=== PATIENT | female | born 1960 | race African-American/Black ===

== ENCOUNTER → 2016-11-30 | Outpatient (CLI) | payer MEDICAID | LOC: OD 16:50 | PROVIDERS: ATTEND Physician Assistant | DX: R07.9 Chest pain, unspecified (principal); R07.1 Chest pain on breathing | CPT/HCPCS: 71020 ==

== ENCOUNTER → 2016-12-06 | Outpatient (CLI) | payer MEDICAID | LOC: RAD 10:41 | PROVIDERS: ATTEND Physician Assistant | DX: J90 Pleural effusion, not elsewhere classified (principal) | CPT/HCPCS: 71020 ==

== ENCOUNTER 2016-12-07 06:34 | Day surgery (SDC) | payer MEDICAID ==
[~2016-12-07 06:34] MED LIST: BUPIVACAINE HCL 0.75% INJ/PF (7.5 MG/1 ML) 10 ML SDV OD PRN; KETOROLAC TROMETHAMINE 0.45% 4 DROP/0.4 ML DROPERETTE OD PRN; LIDOCAINE 4% INJ/PF (40 MG/ML) 5 ML AMPUL OD PRN
[2016-12-07] MEDS ORDERED: MIDAZOLAM 2 MG/2 ML INJ ONE ×2 (06:39→06:48)
[2016-12-07] MEDS ORDERED: PROPOFOL INJ 200 MG/20 ML VIAL IV ONE (06:39)
[2016-12-07] MEDS: TETRACAINE HCL 0.5% OPH SOLN 0.6 ML DROPERETTE OD PRN ×2 (07:16→07:27)
[2016-12-07] MEDS: TROPICAMIDE 1% OPH SOLN 3 ML OD PRN ×3 (07:17→07:26)
[2016-12-07] MEDS: BESIFLOXACIN HCL 0.6% OPH SUSP 5 ML BOTTLE OD PRN ×3 (07:17→08:01)
[2016-12-07] MEDS: CYCLOPENTOLATE 0.2%/PHENYLEPHRINE 1% OPH SOLN 2 ML OD PRN ×3 (07:17→07:26)
[2016-12-07] MEDS ORDERED: EPINEPHRINE INJ/PF 1 MG/1 ML AMPULE ONE (07:19)
[2016-12-07] MEDS ORDERED: CHONDR SU A NA/HYALUR INTRAOC KIT (SURGICARE) ONE (07:20)
--- NOTE | 2016-12-07 08:38 | [facility] DISCHARGE SUMMARY E ---
[facility] Discharge Summary NAME: DENIS HAIR AGE: 56Y ADMITTED: 12/07/2016 DISCHARGED: 12/07/2016 ADMISSION DIAGNOSIS: Cataract, right eye. DISCHARGE DIAGNOSIS: Cataract, right eye. HOSPITAL COURSE: The patient underwent uneventful cataract extraction with intraocular lens implant, right eye, on 12/07/2016. She is discharged to home. DISCHARGE INSTRUCTIONS: She is instructed to resume preoperative medications; to take Tylenol as needed for discomfort; to use Durezol, ketorolac and Vigamox at 3:00 p.m. and 8:00 p.m.; and to follow up in my office in 1 day. DICTATING PHYSICIAN: JEFFREY COFFMAN M.D. [id number] PHY#: [id number] ID: [id number] JOB#: [id number] ACCT: [id number] cc:JEFFREY COFFMAN M.D. >
--- NOTE | 2016-12-07 08:38 | [facility] OPERATIVE REPORT E ---
[facility] Operative Report NAME: DENIS HAIR AGE: 56Y DATE OF SURGERY: 12/07/2016 ROOM: PREOPERATIVE DIAGNOSIS: CATARACT, RIGHT EYE. POSTOPERATIVE DIAGNOSIS: CATARACT, RIGHT EYE. PROCEDURE PERFORMED: PHACOEMULSIFICATION WITH POSTERIOR CHAMBER INTRAOCULAR LENS, RIGHT EYE. SURGEON: JEFFREY COFFMAN MD ANESTHESIA: TOPICAL WITH MAC. INDICATIONS FOR SURGERY: Difficulty reading phone book and difficulty with night driving, best corrected visual acuity 20/40, with glare 20/70. PROCEDURE: The patient was brought to the Operating Room and placed on the operative table. Following tetracaine drops, topical anesthesia was administered. This consisted of instrument wipe pledgets soaked in a solution of 4% Xylocaine mixed with 0.75% Marcaine in a 1:2 ratio. A 2 x 1 cm pledget was placed in the superior fornix. A 1 x 1 cm pledget was placed in the inferior fornix. The eye was patched shut for 5 minutes. The patch was removed. The eye was sterilely prepped and draped in the usual manner. Lid speculum was placed in the eye. The pledgets were removed. 4-0 black silk sutures were placed around the superior and the inferior rectus muscles to be used as traction. A conjunctival peritomy was made at the 10 o'clock position. Hemostasis was obtained with bipolar cautery. A posterior limbal groove was created using a crescent knife and dissected anteriorly towards the cornea. A sharp point blade was used to create a paracentesis site at the 2 o'clock position. A 2.4 mm keratome was used to enter the anterior chamber through the groove. Viscoelastic was injected into the anterior chamber. An anterior capsulotomy was performed using Utrata forceps in a capsulorrhexis fashion. Hydrodissection and hydrodelineation were performed. Phacoemulsification was performed in [id number]-qka-[id number] technique. A total of 32 seconds phaco time was used. Following this, the I/A unit was used to remove residual cortex. Viscoelastic was injected into the capsular bag. Intraocular lens model [id number], 45.5 diopters, serial number [id number], was placed in the capsular bag. The I/A unit was used to remove residual viscoelastic. The wound was seen to be watertight under high and low pressure, and no sutures were placed. The intraocular lens was well centered. The pressure was adjusted in the eye to normal pressure. The 4-0 black silk sutures and lid speculum were removed. The eye was shielded after Besivance drops were placed. The patient tolerated the procedure well and was sent to the Recovery Room in good condition. DICTATING PHYSICIAN: JEFFREY COFFMAN M.D. DICTATING PHYSICIAN: JEFFREY COFFMAN M.D. 1227M [id number] PHY#: [id number] ID: [id number] JOB#: [id number] ACCT: [id number] cc:JEFFREY COFFMAN M.D. >
== END 2016-12-07 08:42 | disposition home or self-care (01) ==
LOC: SC 06:34
PROVIDERS: ATTEND Ophthalmology
PROC: 08RJ3JZ Replacement of Right Lens with Synthetic Substitute, Percutaneous Approach (ICD-10-PCS; principal; 2016-12-07 07:30)
DX: H25.013 Cortical age-related cataract, bilateral (principal); H04.123 Dry eye syndrome of bilateral lacrimal glands; H40.033 Anatomical narrow angle, bilateral; I10 Essential (primary) hypertension; Z79.899 Other long term (current) drug therapy; Z85.42 Personal history of malignant neoplasm of other parts of uterus
CPT/HCPCS: 66984; V2632; J2250; J3490 ×5; J0171; 142; J2704

== ENCOUNTER → 2016-12-16 | Outpatient (CLI) | payer MEDICAID | LOC: OD 13:01 | PROVIDERS: ATTEND Physician Assistant | DX: R10.10 Upper abdominal pain, unspecified (principal); R22.2 Localized swelling, mass and lump, trunk | CPT/HCPCS: 74022 ==

== ENCOUNTER → 2016-12-21 | Outpatient (CLI) | payer MEDICAID | LOC: RAD 08:39 | PROVIDERS: ATTEND Internal Medicine | DX: C54.1 Malignant neoplasm of endometrium (principal); R91.8 Other nonspecific abnormal finding of lung field; J90 Pleural effusion, not elsewhere classified | CPT/HCPCS: 71260; 74177 ==

== ENCOUNTER 2017-01-04 07:26 | Day surgery (SDC) | payer MEDICAID ==
[~2017-01-04 07:26] MED LIST changes: -BUPIVACAINE HCL 0.75% INJ/PF (7.5 MG/1 ML) 10 ML SDV OD PRN; +BUPIVACAINE HCL 0.75% INJ/PF (7.5 MG/1 ML) 10 ML SDV OS PRN; -KETOROLAC TROMETHAMINE 0.45% 4 DROP/0.4 ML DROPERETTE OD PRN; +KETOROLAC TROMETHAMINE 0.45% 4 DROP/0.4 ML DROPERETTE OS PRN; -LIDOCAINE 4% INJ/PF (40 MG/ML) 5 ML AMPUL OD PRN; +LIDOCAINE 4% INJ/PF (40 MG/ML) 5 ML AMPUL OS PRN; +MIDAZOLAM 2 MG/2 ML INJ ONE
[2017-01-04] MEDS ORDERED: EPINEPHRINE INJ/PF 1 MG/1 ML AMPULE ONE (07:44)
[2017-01-04] MEDS ORDERED: CHONDR SU A NA/HYALUR INTRAOC KIT (SURGICARE) ONE (07:44)
[2017-01-04] MEDS: BESIFLOXACIN HCL 0.6% OPH SUSP 5 ML BOTTLE OS PRN ×3 (07:49→08:49)
[2017-01-04] MEDS: TROPICAMIDE 1% OPH SOLN 3 ML OS PRN ×3 (07:49→08:10)
[2017-01-04] MEDS: CYCLOPENTOLATE 0.2%/PHENYLEPHRINE 1% OPH SOLN 2 ML OS PRN ×3 (07:49→08:10)
[2017-01-04] MEDS: TETRACAINE HCL 0.5% OPH SOLN 0.6 ML DROPERETTE OS PRN ×2 (07:50→08:10)
--- NOTE | 2017-01-04 09:08 | [facility] OPERATIVE REPORT E ---
[facility] Operative Report NAME: DENIS HAIR AGE: 56Y DATE OF SURGERY: 01/04/2017 ROOM: PREOPERATIVE DIAGNOSIS: CATARACT, LEFT EYE. POSTOPERATIVE DIAGNOSIS: CATARACT, LEFT EYE. PROCEDURE; Phacoemulsification with posterior chamber intraocular lens, left eye. SURGEON: JEFFREY COFFMAN MD ANESTHESIA: Topical with MAC. INDICATIONS FOR SURGERY: Difficulty reading medical bottles, phone book, glare with night driving. Best-corrected visual acuity 20/25 and optical imbalance after cataract surgery on the right eye. PROCEDURE: The patient was brought to the operating room and placed on the operative table. Following tetracaine drops, topical anesthesia was administered. This consisted of instrument wipe pledgets soaked in a solution of 4% Xylocaine mixed with 0.75% Marcaine in a 1:2 ratio. A 2 x 1 cm pledget was placed in the superior fornix. A 1 x 1 cm pledget was placed in the inferior fornix. The eye was patched shut for 5 minutes. The patch was removed. The eye was sterilely prepped and draped in the usual manner. Lid speculum was placed in the eye. The pledgets were removed. Then 4-0 black silk sutures were placed around the superior and the inferior rectus muscles to be used as traction. A conjunctival peritomy was made at the 10 o'clock position. Hemostasis was attained with bipolar cautery. A posterior limbal groove was created using a crescent knife and dissected anteriorly towards the cornea. A sharp point blade was used to create a paracentesis site at the 2 o'clock position. A 2.4 mm keratome was used to enter the anterior chamber through the groove. Viscoelastic was injected into the anterior chamber. An anterior capsulotomy was performed using Utrata forceps in a capsulorrhexis fashion. Hydrodissection and hydrodelineation were performed. Phacoemulsification was performed in wkliuf-[id number]-guuhkrw technique. A total of 34 seconds phaco time was used. Following this, the I/A unit was used to remove residual cortex. Viscoelastic was injected into the capsular bag. Intraocular lens model SN60WF, 24.5 diopters, serial number [id number] was placed in the capsular bag. The I/A unit was used to remove residual viscoelastic. The wound was seen to be watertight under high and low pressure, and no sutures were placed. The intraocular lens was well centered. The pressure was adjusted in the eye to normal pressure. The 4-0 black silk sutures and lid speculum were removed. The eye was shielded after Besivance drops were placed. The patient tolerated the procedure well and was sent to the recovery room in good condition. DICTATING PHYSICIAN: JEFFREY COFFMAN M.D. [id number] PHY#: [id number] ID: [id number] JOB#: [id number] ACCT: [id number] cc:JEFFREY COFFMAN M.D. >
--- NOTE | 2017-01-04 09:08 | [facility] DISCHARGE SUMMARY E ---
[facility] Discharge Summary NAME: DENIS HAIR AGE: 56Y ADMITTED: 01/04/2017 DISCHARGED: 01/04/2017 HOSPITAL COURSE: The patient is a 56-year-old lady who underwent uneventful cataract extraction with intraocular lens implant of the left eye on 01/04/2017. DISPOSITION: She will be discharged to home. DISCHARGE INSTRUCTIONS: She is instructed to resume preoperative medications, take Tylenol as needed for discomfort, to keep her eye shielded. To use Vigamox, Durezol and ketorolac at 3 p.m. and 8 p.m. Follow up in my office in 1 day. DICTATING PHYSICIAN: JEFFREY COFFMAN M.D. 1221M 05 Y#: [id number] ID: [id number] JOB#: [id number] ACCT: [id number] cc:JEFFREY COFFMAN M.D. >
== END 2017-01-04 09:28 | disposition home or self-care (01) ==
LOC: SC 07:26
PROVIDERS: ATTEND Ophthalmology
PROC: 08RK3JZ Replacement of Left Lens with Synthetic Substitute, Percutaneous Approach (ICD-10-PCS; principal; 2017-01-04 08:30)
DX: H25.12 Age-related nuclear cataract, left eye (principal); Z96.1 Presence of intraocular lens
CPT/HCPCS: 66984; V2632; J2250; J3490 ×5; J0171; 142

== ENCOUNTER 2017-01-26 10:00 | Emergency (ER) | payer MEDICAID ==
--- NOTE | 2017-01-26 10:22 | ER Document Report ---
ED Medical Screen (RME) - General Stated Complaint: FALL;LUMBAR PAIN Notes: 56 yo female fell down stairs this morning. c/o low back pain and left elbow pain. no radiculopathy, no paresthesia. no LOC. TRAVEL OUTSIDE OF THE [place] IN LAST 30 DAYS: No - Related Data Allergies/Adverse Reactions: No Known Allergies Allergy (Verified 01/04/17 07:47) Past Medical History - Past Medical History Cardiac Medical History: Reports: Hx Hypertension - medication d/t chemo Denies: Hx Coronary Artery Disease, Hx Heart Attack Pulmonary Medical History: Reports: Hx Asthma - flovent Denies: Hx Bronchitis, Hx COPD, Hx Pneumonia Neurological Medical History: Denies: Hx Cerebrovascular Accident, Hx Seizures GI Medical History: Reports: Hx Gastroesophageal Reflux Disease. Denies: Hx Hepatitis, Hx Hiatal Hernia, Hx Ulcer Musculoskeltal Medical History: Denies Hx Arthritis Infectious Medical History: Denies: Hx Hepatitis Past Surgical History: Reports: Hx Section, Hx Gynecologic Surgery, Hx Hysterectomy. Denies: Hx Mastectomy, Hx Open Heart Surgery, Hx Pacemaker - Immunizations Hx Diphtheria, Pertussis, Tetanus Vaccination: No - unknown
[2017-01-26] MEDS ORDERED: TRAMADOL HCL 50 MG TABLET PO ONE (12:12)
[2017-01-26] MEDS ORDERED: LIDOCAINE 5% (700 MG) TRANSDERMAL ADH..PATCH TP ONE (12:12)
--- NOTE | 2017-01-26 14:04 | ER Document Report ---
ED General - General Chief Complaint: Fall Injury Stated Complaint: FALL;LUMBAR PAIN TRAVEL OUTSIDE OF THE [place] IN LAST 30 DAYS: No - HPI Patient complains to provider of: fall back pain left shoulder left elbow Notes: Patient states she is walking the stairs and she has to come fall landing on her buttocks also denies complaining of left elbow left shoulder pain. Patient denies any loss consciousness. Patient otherwise upon my evaluation is playing on her eye phone listening to music with headphones no obvious distress. Patient states that she does have pain medication at home tramadol did not take any pain medication today. Denies fevers chills nausea vomiting chest pain at all pain prior to or after the fall - Related Data Allergies/Adverse Reactions: No Known Allergies Allergy (Verified 01/26/17 10:20) Past Medical History - Social History Smoking Status: Never Smoker Chew tobacco use (# tins/day): No Frequency of alcohol use: None Drug Abuse: None Family History: Reviewed & Not Pertinent Patient has suicidal ideation: No - Past Medical History Cardiac Medical History: Reports: Hx Hypertension - medication d/t chemo Denies: Hx Coronary Artery Disease, Hx Heart Attack Pulmonary Medical History: Reports: Hx Asthma - flovent Denies: Hx Bronchitis, Hx COPD, Hx Pneumonia Neurological Medical History: Denies: Hx Cerebrovascular Accident, Hx Seizures Renal/ Medical History: Denies: Hx Peritoneal Dialysis GI Medical History: Reports: Hx Gastroesophageal Reflux Disease. Denies: Hx Hepatitis, Hx Hiatal Hernia, Hx Ulcer Musculoskeltal Medical History: Denies Hx Arthritis Infectious Medical History: Denies: Hx Hepatitis Past Surgical History: Reports: Hx Section, Hx Gynecologic Surgery, Hx Hysterectomy. Denies: Hx Mastectomy, Hx Open Heart Surgery, Hx Pacemaker - Immunizations Hx Diphtheria, Pertussis, Tetanus Vaccination: No - unknown Review of Systems - Review of Systems Constitutional: No symptoms reported EENT: No symptoms reported Cardiovascular: No symptoms reported Respiratory: No symptoms reported Gastrointestinal: No symptoms reported Genitourinary: No symptoms reported Female Genitourinary: No symptoms reported Musculoskeletal: Back pain, Other - Shoulder pain and elbow pain Skin: No symptoms reported Hematologic/Lymphatic: No symptoms reported Neurological/Psychological: No symptoms reported -: Yes All other systems reviewed and negative Physical Exam - Vital signs Vitals: Temp Pulse Resp BP Pulse Ox 98.0 F 73 20 151/73 H 97 01/26/17 10:18 01/26/17 10:18 01/26/17 10:18 01/26/17 10:18 01/26/17 10:18 Interpretation: Normal - General General appearance: Appears well, Alert - HEENT Head: Normocephalic, Atraumatic Eyes: Normal Pupils: PERRL - Respiratory Respiratory status: No respiratory distress Chest status: Nontender Breath sounds: Normal Chest palpation: Normal - Cardiovascular Rhythm: Regular Heart sounds: Normal auscultation Murmur: No - Abdominal Inspection: Normal Distension: No distension Bowel sounds: Normal Tenderness: Nontender Organomegaly: No organomegaly - Back Back: Normal, Nontender - Extremities General upper extremity: Normal inspection, Nontender, Normal color, Normal ROM , Normal temperature General lower extremity: Normal inspection, Nontender, Normal color, Normal ROM , Normal temperature, Normal weight bearing. No: Gerda's sign - Neurological Neuro grossly intact: Yes Cognition: Normal Orientation: AAOx4 Kylah Coma Scale Eye Opening: Spontaneous [place]yl[place] Coma Scale Verbal: Oriented [place] Coma Scale Motor: Obeys Commands Kylah Coma Scale Total: 15 Speech: Normal Motor strength normal: LUE, RUE, LLE, RLE Sensory: Normal - Psychological Associated symptoms: Normal affect, Normal mood - Skin Skin Temperature: Warm Skin Moisture: Dry Skin Color: Normal Course - Re-evaluation Re-evalutation: 01/26/17 18:47 X-rays negative for any acute pathology. Patient will be discharged home with medication for pain control. Patient is encouraged follow-up with her primary care physician. - Vital Signs Vital signs: Temp Pulse Resp BP Pulse Ox 98.0 F 81 16 142/84 H 100 01/26/17 14:41 01/26/17 14:41 01/26/17 14:41 01/26/17 14:41 01/26/17 14:41 Discharge - Discharge Clinical Impression: Multiple contusions Fall Qualifiers: Encounter type: initial encounter Qualified Code(s): W19.XXXA - Unspecified fall, initial encounter Condition: Good Disposition: HOME, SELF-CARE Instructions: Low Back Pain ([facility]), Contusion ([facility]) Additional Instructions: Follow-up with your primary care physician. Take medication as prescribed. Return to ER symptoms worsen. Prescriptions: Tramadol HCl [Ultram 50 mg Tablet] 50 mg PO ASDIR PRN #10 tablet PRN Reason: Referrals: PRIETO,GERTRUDIS K, MD [Primary Care Provider] - Follow up as needed
[2017-01-26 14:43] VITALS: BP 142/84
== END 2017-01-26 14:41 | disposition home or self-care (01) ==
LOC: ER 10:00
DX: T14.8 Other injury of unspecified body region (principal); M54.9 Dorsalgia, unspecified; M25.512 Pain in left shoulder; M25.522 Pain in left elbow; W10.9XXA Fall (on) (from) unspecified stairs and steps, initial encounter; Y92.009 Unspecified place in unspecified non-institutional (private) residence as the place of occurrence of the external cause; J45.909 Unspecified asthma, uncomplicated; K21.9 Gastro-esophageal reflux disease without esophagitis; Z90.710 Acquired absence of both cervix and uterus
CPT/HCPCS: 99283; 72220; 73080; 72110; 73030; J3490

== ENCOUNTER → 2017-03-10 | Outpatient (CLI) | payer MEDICAID | LOC: RAD 10:06 | PROVIDERS: ATTEND Internal Medicine | DX: C54.1 Malignant neoplasm of endometrium (principal); C78.7 Secondary malignant neoplasm of liver and intrahepatic bile duct | CPT/HCPCS: 71260; 74177 ==

== ENCOUNTER → 2017-03-23 | Outpatient (CLI) | payer MEDICAID | LOC: WI 08:24 | PROVIDERS: ATTEND Internal Medicine | DX: N63 Unspecified lump in breast (principal); C54.1 Malignant neoplasm of endometrium | CPT/HCPCS: 76642; G0204; G0206-52 ==

== ENCOUNTER → 2017-04-07 | Day surgery (SDC) | payer MEDICAID ==
[~2017-04-07] MED LIST changes: -BUPIVACAINE HCL 0.75% INJ/PF (7.5 MG/1 ML) 10 ML SDV OS PRN; -KETOROLAC TROMETHAMINE 0.45% 4 DROP/0.4 ML DROPERETTE OS PRN; +LIDOCAINE 2% INJ (20 MG/ML) 20 ML MDV ONE; -LIDOCAINE 4% INJ/PF (40 MG/ML) 5 ML AMPUL OS PRN; -MIDAZOLAM 2 MG/2 ML INJ ONE
--- NOTE | 2017-04-21 17:24 | WOMENS IMAGING REPORT ---
EXAM DESCRIPTION: U/S BREAST BX COMPLETED DATE/TIME: 04/07/2017 11:21 am REASON FOR STUDY: R59.0, C54.1 C54.1 MALIGNANT NEOPLASM OF ENDOMETRIUM R59.0 LOCALIZED ENLARGED LY MPH NODES COMPARISON: CT chest 03/10/2017 Left breast diagnostic mammogram and ultrasound 03/23/2017 TECHNIQUE: The procedure was discussed with the patient and the patient agreed to proceed. The patient was scanned and the area of interest in the left axilla was localized. This correlates w ith the area of concern on prior imaging studies. This area was targeted for ultrasound-guided core b iopsy. After sterile skin prep and 4 mL of local lidocaine 1% for skin and deep tissue anesthesia, a 14 gau [employer]ix coaxial core biopsy needle was used to obtain several cores of tissue from the lesion. Under ultr asound guidance, a ribbon clip was placed in the areas sampled. There were no immediate post-procedu re complications. MAMMOGRAM: Post-procedure two view mammogram was not performed. Pathology yields a diagnosis of moderately differentiated adenocarcinoma, final report is pending rev iew of outside prior biopsy slides from patient's prior endometrial carcinoma. Pathology is concordant. LIMITATIONS: None. FINDINGS: Ultrasound guided breast biopsy as described above. POST PROCEDURE MAMMOGRAMS FOR MARKER PLACEMENT: No IMPRESSION: ULTRASOUND-GUIDED CORE BIOPSY OF THE ENLARGED LEFT AXILLARY LYMPH NODE FIELD DIAGNOSIS O F MODERATELY DIFFERENTIATED ADENOCARCINOMA COMMENT: COMMUNICATION: The patient's provider has been notified of the findings. The provider will discuss the findings with the patient. Patient medication list reviewed: Yes- Quality ID# [id number]:Eligible professional attests to documenting i n the medical record they obtained, updated, or reviewed the patient's current medications. TECHNICAL DOCUMENTATION: JOB ID: [id number] [employer]- All Rights Reserved
== END ==
LOC: WI 09:53
PROVIDERS: ATTEND Internal Medicine
PROC: 0HBU3ZX Excision of Left Breast, Percutaneous Approach, Diagnostic (ICD-10-PCS; principal; 2017-04-07)
DX: C54.1 Malignant neoplasm of endometrium (principal); R59.0 Localized enlarged lymph nodes; C44.509 Unspecified malignant neoplasm of skin of other part of trunk
CPT/HCPCS: 88342 ×2; 88341 ×2; 88305 ×2; 19083; J3490

== ENCOUNTER → 2017-04-27 | Outpatient (CLI) | payer MEDICAID ==
[2017-04-27 18:03] LABS: ABSOLUTE LYMPHOCYTES (AUTO) 1.4 10^3/uL (0.5-4.7); ABSOLUTE MONOCYTES (AUTO) 0.6 10^3/uL (0.1-1.4); BASOPHILS % (AUTO) 0.4 % (0-2); EOSINOPHILS % (AUTO) 0.3 % (0-6); HEMATOCRIT 34.4 % (36.0-47.0); HEMOGLOBIN 10.7 g/dL (12.0-15.5); HGB HCT DIFFERENCE -2.3; LYMPHOCYTES % (AUTO) 23.2 % (13-45); MEAN CORPUSCULAR HEMOGLOBIN 21.2 pg (27.0-33.4); MEAN CORPUSCULAR HGB CONC 31.2 g/dL (32.0-36.0); MEAN CORPUSCULAR VOLUME 68 fl (80-97); MONOCYTES % (AUTO) 9.4 % (3-13); RED BLOOD COUNT 5.06 10^6/uL (3.72-5.28); RED CELL DISTRIBUTION WIDTH 16.6 % (11.5-14.0); SEGMENTED NEUTROPHILS % (AUTO) 66.7 % (42-78); WHITE BLOOD COUNT 5.9 10^3/uL (4.0-10.5)
[2017-04-27 18:30] LABS: ALANINE AMINOTRANSFERASE 23 U/L (9-52); ALBUMIN 3.4 g/dL (3.5-5.0); ALKALINE PHOSPHATASE 65 U/L (38-126); ANION GAP 10 (5-19); ASPARTATE AMINO TRANSFERASE 29 U/L (14-36); BILIRUBIN,TOTAL 0.3 mg/dL (0.2-1.3); BLOOD UREA NITROGEN 13 mg/dL (7-20); CALCIUM 9.8 mg/dL (8.4-10.2); CARBON DIOXIDE 28 mmol/L (22-30); CHLORIDE 100 mmol/L (98-107); CREATININE RESULT 0.77 mg/dL (0.52-1.25); GLUCOSE 84 mg/dL (75-110); SODIUM 137.9 mmol/L (137-145); TOTAL PROTEIN 6.8 g/dL (6.3-8.2)
== END ==
LOC: OD 17:07
PROVIDERS: ATTEND Physician Assistant
DX: K59.00 Constipation, unspecified (principal)
CPT/HCPCS: 36415; 80053; 85025

== ENCOUNTER → 2017-04-27 | Outpatient (CLI) | payer MEDICAID ==
--- NOTE | 2017-04-27 17:21 | RADIOLOGY REPORT (SQ) ---
EXAM DESCRIPTION: ACUTE ABDOMEN SERIES COMPLETED DATE/TIME: 04/27/2017 5:00 pm REASON FOR STUDY: CONSTIPATION, UNSPECIFIED K59.00 CONSTIPATION, UNSPECIFIED COMPARISON: 12/16/2016 NUMBER OF VIEWS: Three views. TECHNIQUE: Frontal chest, supine abdomen and upright abdomen radiographic images acquired. LIMITATIONS: None. FINDINGS: CHEST: There is a large nodule in the medial left base with multiple smaller nodules in silvia th lungs representing advancing disease compared to the earlier study. FREE AIR: No free air is present. There is a general haziness to the abdomen suggesting the presence of ascites. BOWEL GAS PATTERN: Nonobstructive pattern. No dilated loops or air fluid levels. CALCIFICATIONS: No suspicious calcifications. HARDWARE: None in the abdomen. SOFT TISSUES: No gross mass or suggestion of organomegaly. BONES: No acute fracture. No worrisome bone lesions. OTHER: No other significant finding. IMPRESSION: 1. Large pulmonary nodule with multiple smaller pulmonary nodules suggesting metastases . 2. Possible ascites. TECHNICAL DOCUMENTATION: JOB ID: [id number] [employer]- All Rights Reserved
== END ==
LOC: OD 16:42
PROVIDERS: ATTEND Physician Assistant
DX: K59.00 Constipation, unspecified (principal); R91.8 Other nonspecific abnormal finding of lung field
CPT/HCPCS: 74022

== ENCOUNTER 2017-05-04 19:05 | Inpatient (IN) | payer MEDICAID ==
--- NOTE | 2017-05-04 19:28 | ER Document Report ---
ED Respiratory Problem - General Mode of Arrival: Ambulatory Information source: Patient TRAVEL OUTSIDE OF THE [place] IN LAST 30 DAYS: No - HPI Patient complains to provider of: Other - difficulty breathing Associated symptoms: Other - See above <CHARLA BRADFORD - Last Filed: 05/04/17 21:44> <ESTEBANSAUL DENIZ - Last Filed: 05/05/17 01:25> - General Chief Complaint: Breathing Difficulty Stated Complaint: TROUBLE BREATHING Time Seen by Provider: 05/04/17 19:13 Notes: Patient is a 57 year old female, with a past medical history including endometrium cancer and asthma, who presents to the emergency department complaining of difficulty breathing onset a couple of hours ago. Patient states that she has also had chest pain over the past couple of days that has subsided some. Patient reports her last chemotherapy treatment was 6 days ago and that the treatment is new as of 2 weeks ago. Patient reports she has been experiencing side effets from the therapy including abdominal pain, back pain, constipation, and loss of appetite. Patient also complains bloating and chills. Patient denies cough and fever. Patient has an inhaler at home and uses as needed. Patient states that she did take a Tylenol at home at around 1400 today. (CHARLA BRADFORD) - Related Data Allergies/Adverse Reactions: No Known Allergies Allergy (Verified 01/26/17 10:20) Past Medical History - General Information source: Patient - Social History Smoking Status: Unknown if Ever Smoked Family History: Reviewed & Not Pertinent - Past Medical History Cardiac Medical History: Reports: Hx Hypertension - medication d/t chemo Pulmonary Medical History: Reports: Hx Asthma - flovent Malignancy Medical History: Reports: Other - Hx endometrium cancer GI Medical History: Reports: Hx Gastroesophageal Reflux Disease Past Surgical History: Reports: Hx Section, Hx Gynecologic Surgery, Hx Hysterectomy - Immunizations Hx Diphtheria, Pertussis, Tetanus Vaccination: No - unknown <CHARLA BRADFORD - Last Filed: 05/04/17 21:44> Review of Systems - Review of Systems Constitutional: See HPI, Chills EENT: No symptoms reported Cardiovascular: See HPI, Chest pain Respiratory: See HPI, Other - difficulty breathing. denies: Cough Gastrointestinal: See HPI, Abdomen distended, Abdominal pain, Constipation, Poor appetite Genitourinary: No symptoms reported Female Genitourinary: No symptoms reported Musculoskeletal: See HPI, Back pain Skin: No symptoms reported Hematologic/Lymphatic: No symptoms reported Neurological/Psychological: No symptoms reported -: Yes All other systems reviewed and negative <CHARLA BRADFORD - Last Filed: 05/04/17 21:44> Physical Exam - Vital signs Interpretation: Tachypneic - mild - General General appearance: Alert, Other - chronically ill appearing - HEENT Head: Normocephalic, Atraumatic - Respiratory Respiratory status: Tachypnea - mild Chest status: Nontender Breath sounds: Decreased air movement - at bases bilaterally Chest palpation: Normal - Cardiovascular Rhythm: Regular Heart sounds: Normal auscultation Murmur: No - Back Back: Normal, Nontender - Extremities General upper extremity: Normal inspection General lower extremity: Normal inspection - Neurological Neuro grossly intact: Yes Cognition: Normal Orientation: AAOx4 Kylah Coma Scale Eye Opening: Spontaneous Kylah Coma Scale Verbal: Oriented [place] Coma Scale Motor: Obeys Commands Kylah Coma Scale Total: 15 Speech: Normal - Psychological Associated symptoms: Normal affect, Normal mood - Skin Skin Temperature: Warm Skin Moisture: Dry Skin Color: Normal <CHARLA BRADFORD - Last Filed: 05/04/17 21:44> Course - Laboratory Result Diagrams: 05/04/17 20:27 05/04/17 20:27 <CHARLA BRADFORD - Last Filed: 05/04/17 21:44> - Laboratory Result Diagrams: 05/04/17 20:27 05/04/17 20:27 - Diagnostic Test Radiology reviewed: Reports reviewed <SAUL ORELLANA - Last Filed: 05/05/17 01:25> - Re-evaluation Re-evalutation: 05/05/17 00:17 Patient is a 57-year-old female who comes in complaining about difficulty breathing. Patient has a history of endometrial cancer and is getting chemotherapy currently. Patient with bilateral moderate-sized pleural effusions. Patient came in with tachypnea. No evidence for infection otherwise. Patient has been discussed with Dr. Ventura. Thoracocentesis under ultrasound has been ordered. Patient will be kept overnight. Understands and agrees with plan. Stable time of admission (SAUL ORELLANA) - Vital Signs Vital signs: Temp Pulse Resp BP Pulse Ox 98.3 F 92 19 131/80 H 99 05/05/17 00:30 05/05/17 00:30 05/05/17 00:30 05/05/17 00:30 05/05/17 00:30 - Laboratory Laboratory results interpreted by me: 05/04/17 05/04/17 05/04/17 20:27 20:27 20:27 Hgb 9.6 L Hct 31.0 L MCV 67 L MCH 20.9 L MCHC 31.0 L RDW 16.8 H VBG pH 7.45 H VBG HCO3 34.1 H Sodium 136.4 L Carbon Dioxide 31 H Total Protein 5.8 L Albumin 2.8 L Urine Protein Urine Ascorbic Acid 05/04/17 22:57 Hgb Hct MCV MCH MCHC RDW VBG pH VBG HCO3 Sodium Carbon Dioxide Total Protein Albumin Urine Protein 30 H Urine Ascorbic Acid 20 H Discharge <CHARLA BRADFORD - Last Filed: 05/04/17 21:44> - Discharge Admitting Provider: [facility] Admitted: [facility] <SAUL ORELLANA - Last Filed: 05/05/17 01:25> - Discharge Clinical Impression: Pleural effusion, Endometrial cancer Condition: Stable Disposition: ADMITTED INPATIENT Scribe Attestation: 05/05/17 01:18 I personally performed the services described in the documentation, reviewed and edited the documentation which was dictated to the scribe in my presence, and it accurately records my words and actions. (SAUL ORELLANA) Scribe Documentation - Scribe Written by Orlando:: orlando Ratliff, 05/04/17, [id number] acting as scribe for :: Esteban <CHARLA BRADFORD - Last Filed: 05/04/17 21:44>
--- NOTE | 2017-05-04 20:01 | RADIOLOGY REPORT (SQ) ---
EXAM DESCRIPTION: CHEST SINGLE VIEW COMPLETED DATE/TIME: 05/04/2017 7:40 pm REASON FOR STUDY: SOB COMPARISON: 12/06/2016 EXAM PARAMETERS: NUMBER OF VIEWS: One view. TECHNIQUE: Single frontal radiographic view of the chest acquired. RADIATION DOSE: NA LIMITATIONS: None. FINDINGS: LUNGS AND PLEURA: New bilateral small pleural effusions. Similar lateral pulmonary nodula rity. No pneumothorax. Minimal basilar subsegmental atelectasis. MEDIASTINUM AND HILAR STRUCTURES: Stable. HEART AND VASCULAR STRUCTURES: Stable. BONES: No acute findings. HARDWARE: Right chest port appears stable. OTHER: No other significant finding. IMPRESSION: New bilateral small pleural effusions. Similar lateral pulmonary nodularity. No pneumot horax. Minimal basilar subsegmental atelectasis. TECHNICAL DOCUMENTATION: JOB ID: [id number]
[2017-05-04 20:42] LABS: ABSOLUTE BASOPHILS # (AUTO) 0.1 10^3/uL (0.0-0.2); ABSOLUTE LYMPHOCYTES (AUTO) 1.2 10^3/uL (0.5-4.7); ABSOLUTE MONOCYTES (AUTO) 0.6 10^3/uL (0.1-1.4); ABSOLUTE NEUT (AUTO) 4.6 10^3/uL (1.7-8.2); EOSINOPHILS % (AUTO) 0.2 % (0-6); HEMOGLOBIN 9.6 g/dL (12.0-15.5); HGB HCT DIFFERENCE -2.2; LYMPHOCYTES % (AUTO) 18.3 % (13-45); MEAN CORPUSCULAR HEMOGLOBIN 20.9 pg (27.0-33.4); MEAN CORPUSCULAR VOLUME 67 fl (80-97); RED CELL DISTRIBUTION WIDTH 16.8 % (11.5-14.0); SEGMENTED NEUTROPHILS % (AUTO) 71.5 % (42-78); WHITE BLOOD COUNT 6.4 10^3/uL (4.0-10.5)
[2017-05-04 20:43] LABS: VENOUS BLOOD BASE EXCESS 8.8 mmol/L; VENOUS BLOOD HCO3 34.1 mmol/L (20-32); VENOUS BLOOD PCO2 49.8 mmHg (35-63); VENOUS BLOOD PH 7.45 (7.30-7.42)
[2017-05-04 21:00] LABS: ALANINE AMINOTRANSFERASE 24 U/L (9-52); ALBUMIN 2.8 g/dL (3.5-5.0); ALKALINE PHOSPHATASE 69 U/L (38-126); ANION GAP 6 (5-19); ASPARTATE AMINO TRANSFERASE 29 U/L (14-36); BILIRUBIN,TOTAL 0.2 mg/dL (0.2-1.3); BLOOD UREA NITROGEN 12 mg/dL (7-20); CARBON DIOXIDE 31 mmol/L (22-30); CHLORIDE 99 mmol/L (98-107); CREATININE RESULT 0.68 mg/dL (0.52-1.25); GLUCOSE 93 mg/dL (75-110); POTASSIUM 4.2 mmol/L (3.6-5.0); SODIUM 136.4 mmol/L (137-145); TOTAL PROTEIN 5.8 g/dL (6.3-8.2)
[2017-05-04] MEDS ORDERED: NORMAL SALINE 500 ML IV ONE (21:06)
--- NOTE | 2017-05-04 22:56 | RADIOLOGY REPORT (SQ) ---
EXAM DESCRIPTION: CTA CHEST COMPLETED DATE/TIME: 05/04/2017 10:41 pm REASON FOR STUDY: sob, evaluate for PE COMPARISON: 03/10/2017 TECHNIQUE: CT scan of the chest performed using helical scanning technique with dynamic intravenous contrast injection. Images reviewed with lung, soft tissue and bone windows. Reconstructed coronal and sagittal MPR images reviewed. Additional 3 dimensional post-processing performed to develop Maximal Intensity Projection images (MO P). All images stored on PACS. All CT scanners at this facility use dose modulation, iterative reconstruction, and/or weight based d osing when appropriate to reduce radiation dose to as low as reasonably achievable (ALARA). [facility]: Dose Right [facility]: CareDose [facility]: Dose Right [facility]: Teradose 4D [facility]: Audacious CONTRAST TYPE AND DOSE: 75 mL Isovue 370- low osmolar. RENAL FUNCTION: GFR > 60. RADIATION DOSE: 14.32 mGy. LIMITATIONS: None. FINDINGS: LUNGS AND PLEURA: New moderate size Bilateral pleural effusions. Basilar subsegmental ate lectasis. Increased pulmonary nodularity throughout both lungs. AORTA AND GREAT VESSELS: No aneurysm or dissection. HEART: No pericardial effusion. PULMONARY ARTERIES: No emboli visualized in the main pulmonary arteries or the segmental branches. HILAR AND MEDIASTINAL STRUCTURES: No bulky adenopathy. HARDWARE: None in the chest. UPPER ABDOMEN: Numerous new rim enhancing lesions in the liver consistent with progressed metastatic disease. Ascites. Omental nodularity. Diffuse heterogeneous appearance of the spleen. THYROID AND OTHER SOFT TISSUES: No masses. Bilateral axillary adenopathy. BONES: No acute or significant finding. 3D MIPS: Confirm above findings. OTHER: No other significant finding. IMPRESSION: New moderate size Bilateral pleural effusions. Basilar subsegmental atelectasis. Incre ased pulmonary nodularity throughout both lungs. NO PULMONARY EMBOLI.Numerous new rim enhancing lesio ns in the liver consistent with progressed metastatic disease. Ascites. Omental nodularity. TECHNICAL DOCUMENTATION: JOB ID: [id number] Quality ID # [id number]: Final reports with documentation of one or more dose reduction techniques (e.g., Au tomated exposure control, adjustment of the mA and/or kV according to patient size, use of iterative reconstruction technique) 2010 [employer]- All Rights Reserved
[2017-05-04 23:11] LABS: APPEARANCE,URINE CLEAR; BILIRUBIN,URINE NEGATIVE (NEGATIVE); GLUCOSE, URINE NEGATIVE (NEGATIVE); KETONES,URINE NEGATIVE (NEGATIVE); LEUKOCYTE ESTERASE,URINE NEGATIVE (NEGATIVE); NITRITE,URINE NEGATIVE (NEGATIVE); PROTEIN,URINE 30 mg/dL (NEGATIVE); URINE SPECIFIC GRAVITY 1.026; UROBILINOGEN,URINE NEGATIVE mg/dL (<2.0)
[2017-05-05] MEDS: ACETAMINOPHEN 325 MG TABLET PO PRN ×2 (04:19→17:46)
[2017-05-05] MEDS ORDERED: ONDANSETRON 4 MG TAB.RAPDIS PO PRN (04:24)
[2017-05-05] MEDS: LANSOPRAZOLE 30 MG TAB.RAP.DR PO SCH (06:02)
[2017-05-05 06:34] LABS: HEMATOCRIT 28.6 % (36.0-47.0); HGB HCT DIFFERENCE -1.6; MEAN CORPUSCULAR HEMOGLOBIN 21.4 pg (27.0-33.4); MEAN CORPUSCULAR HGB CONC 31.6 g/dL (32.0-36.0); MEAN CORPUSCULAR VOLUME 68 fl (80-97); RED BLOOD COUNT 4.23 10^6/uL (3.72-5.28); RED CELL DISTRIBUTION WIDTH 16.6 % (11.5-14.0); WHITE BLOOD COUNT 5.3 10^3/uL (4.0-10.5)
[2017-05-05 06:49] LABS: ANION GAP 7 (5-19); BLOOD UREA NITROGEN 9 mg/dL (7-20); CALCIUM 8.7 mg/dL (8.4-10.2); CARBON DIOXIDE 30 mmol/L (22-30); CHLORIDE 100 mmol/L (98-107); GLUCOSE 82 mg/dL (75-110); POTASSIUM 4.2 mmol/L (3.6-5.0); SODIUM 136.6 mmol/L (137-145)
--- NOTE | 2017-05-05 07:13 | EKG REPORT ---
SEVERITY:- ABNORMAL ECG - SINUS TACHYCARDIA LEFT ANTERIOR FASCICULAR BLOCK CONSIDER ANTEROSEPTAL INFARCT : Confirmed by: Linda Rodríguez MD 05-May-2017 07:13:30
--- NOTE | 2017-05-05 08:57 | PDOC CONSULTATION ---
Consultation Consult Date: 05/05/17 Attending physician:: JOANIE PRIETO Consult reason:: Stage IV endometrial ca, w/ SOB, ascitis History of Present Illness Admission Date/PCP: 05/05/17 00:18 Patient complains of: SOB/Ascitis History of Present Illness: DENIS HAIR is a 57 year old female with known history of stage IV endometrial cancer, we have been taking care of her now for about 2 years. 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 At that time we monitored her for a few months but she began having progressive increase in size of the abdominal nodule. So we decided on reinitiating therapy and she received another 6 months of treatment with Taxol/Avastin and actually did very well with that, the disease responded appropriately, we then gave her a treatment break for several months, then about 9 months ago she began progressing again, and we started her on Gemzar/Avastin, unfortunately she had severe cytopenias and decided herself to hold on therapy at that point. She was held on therapy for about 2 months but then started progressing in October of last year with omental metastasis. We then began treatment again, as she had tolerated Taxol Avastin, we started that again but she progressed soon after. She actually began having breast thickening on the left side as well as axillary metastasis which was brand-new for her, therefore we decided to biopsy the axillary metastasis, and recently got back findings from pathology when they compared that carcinoma to the slides from [place], this was certainly the same cancer and so she is having progression all over now of the endometrial cancer. Therefore we recently started her on Doxil/Avastin. She only received about 3 infusions of this thus far and we did dose reduce for tolerability. She has not been doing well at home, she has been having poor p.o. intake, she has been having difficulty passing stool but still passing some so not completely obstructed, she has been having increasing abdominal girth and what brought her in with severe shortness of breath. Upon admission she was found to have bilateral moderate pleural effusions, also moderate to large ascites. Past Medical History Cardiac Medical History: Reports: Hypertension - medication d/t chemo Denies: Coronary Artery Disease, Myocardial Infarction Pulmonary Medical History: Reports: Asthma - flovent Denies: Bronchitis, Chronic Obstructive Pulmonary Disease (COPD), Pneumonia Neurological Medical History: Denies: Seizures Malignancy Medical History: Reports: Other - Hx endometrium cancer GI Medical History: Reports: Gastroesophageal Reflux Disease Denies: Hepatitis, Hiatal Hernia Musculoskeltal Medical History: Denies: Arthritis Hematology: Reports: Anemia Denies: Sickle Cell Disease Past Surgical History Past Surgical History: Reports: Section, Hysterectomy, Other - Axillary biopsy Denies: Amputation, Mastectomy, Pacemaker Social History Smoking Status: Never Smoker Frequency of Alcohol Use: None Hx Recreational Drug Use: No Drugs: None Hx Prescription Drug Abuse: No Family History Family History: Reviewed & Not Pertinent Parental Family History Reviewed: Yes Children Family History Reviewed: Yes Sibling(s) Family History Reviewed.: Yes Medication/Allergy Home Medications: Biotin [Biotin 10 mg Tablet] 1 tab PO DAILY 03/30/16 Fluticasone Propionate [Flovent Hfa 110 Mcg Inhalation Aerosol 12 gm] 120 puff IH DAILY 03/30/16 Amlodipine Besylate [Norvasc 5 mg Tablet] 5 mg PO BID 11/30/16 Ondansetron [Zofran Odt] 8 mg PO Q8HP PRN 12/28/16 Docusate Sodium [Stool Softener] 100 mg PO BID 05/05/17 Esomeprazole Magnesium 40 mg PO DAILY 05/05/17 Metoprolol Tartrate [Lopressor 25 mg Tablet] 12.5 mg PO BID 05/05/17 Tramadol HCl [Ultram 50 mg Tablet] 50 mg PO BIDP PRN 05/05/17 Allergies/Adverse Reactions: No Known Allergies Allergy (Verified 01/26/17 10:20) Review of Systems Constitutional: PRESENT: anorexia, fatigue, weakness Cardiovascular: PRESENT: dyspnea on exertion Gastrointestinal: PRESENT: abdominal pain, bloating, constipation, nausea Integumentary: ABSENT: rash, wounds Neurological: ABSENT: abnormal gait, abnormal speech, confusion, dizziness, focal weakness, syncope Endocrine: PRESENT: cold intolerance Physical Exam Vital Signs: Temp Pulse Resp BP Pulse Ox 97.9 F 80 16 136/84 H 100 05/05/17 07:49 05/05/17 07:49 05/05/17 07:49 05/05/17 07:49 05/05/17 07:49 Intake & Output 05/04/17 05/05/17 05/06/17 06:59 06:59 06:59 Intake Total 200 Balance 200 Weight 51 kg General appearance: PRESENT: thin Head exam: PRESENT: atraumatic Mouth exam: PRESENT: dry mucosa Respiratory exam: PRESENT: crackles GI/Abdominal exam: PRESENT: ascites, distended, soft Rectal exam: PRESENT: deferred Extremities exam: PRESENT: full ROM. ABSENT: calf tenderness, clubbing, pedal edema Neurological exam: PRESENT: alert, awake, oriented to person, oriented to place , oriented to time, oriented to situation, CN II-XII grossly intact. ABSENT: motor sensory deficit Results Laboratory Results: 05/05/17 06:15 05/05/17 06:15 05/05/17 05/05/17 06:15 06:15 WBC 5.3 RBC 4.23 Hgb 9.0 L Hct 28.6 L MCV 68 L MCH 21.4 L MCHC 31.6 L RDW 16.6 H Plt Count 318 Sodium 136.6 L Potassium 4.2 Chloride 100 Carbon Dioxide 30 Anion Gap 7 BUN 9 Creatinine 0.70 Est GFR ( Amer) > 60 Est GFR (Non-Af Amer) > 60 Glucose 82 Calcium 8.7 Impressions: Chest X-Ray 05/04/17 00:00 IMPRESSION: New bilateral small pleural effusions. Similar lateral pulmonary nodularity. No pneumothorax. Minimal basilar subsegmental atelectasis. Chest/Abdomen CTA 05/04/17 20:07 IMPRESSION: New moderate size Bilateral pleural effusions. Basilar subsegmental atelectasis. Increased pulmonary nodularity throughout both lungs. NO PULMONARY EMBOLI.Numerous new rim enhancing lesions in the liver consistent with progressed metastatic disease. Ascites. Omental nodularity. Status: Image reviewed by me Assessment & Plan - Diagnosis (1) Pleural effusion Is this a current diagnosis for this admission?: YesPlan: Originally, it was felt to be pleural effusion being moderate was probably the cause of the shortness of breath, however I reviewed the images with radiology, effusion is actually quite small, so therefore we are deciding that the ascites is probably the cause of the shortness of breath and will planning paracentesis instead of thoracentesis. (2) Malignant ascites Is this a current diagnosis for this admission?: YesPlan: Likely a major cause of most of her issues right now, we will plan on ultrasound -guided paracentesis as well as albumin. (3) Endometrial cancer Is this a current diagnosis for this admission?: YesPlan: Known endometrial cancer, further treatment planned as an outpatient, had a long discussion with daughter as well as patient and showed them the images as well, also an greater than 70 minutes in coordination of care this morning. - Time Time Spent: Greater than 70 Minutes Critical Time spent with patient: 35 or more minutes - Inpatient Certification Based on my medical assessment, after consideration of the patient's comorbidities, presenting symptoms, or acuity I expect that the services needed warrant INPATIENT care.: Yes I certify that my determination is in accordance with my understanding of Medicare's requirements for reasonable and necessary INPATIENT services [42 CFR 412.3e].: Yes Medical Necessity: Need For IV Fluids, Need for Surgery
[2017-05-05] MEDS ORDERED: PSYLLIUM SEED-SF 5.85 GM PACKET PO PRN ×2 (09:08)
--- NOTE | 2017-05-05 11:05 | PDOC H&P ---
History of Present Illness Admission Date/PCP: 05/05/17 00:18 Patient complains of: Shortness of the breath History of Present Illness: DENIS HAIR is a 57 year old female with known history of stage IV endometrial cancer, we have been taking care of her now for about 2 years. 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 At that time we monitored her for a few months but she began having progressive increase in size of the abdominal nodule. So we decided on reinitiating therapy and she received another 6 months of treatment with Taxol/Avastin and actually did very well with that, the disease responded appropriately, we then gave her a treatment break for several months, then about 9 months ago she began progressing again, and we started her on Gemzar/Avastin, unfortunately she had severe cytopenias and decided herself to hold on therapy at that point. She was held on therapy for about 2 months but then started progressing in October of last year with omental metastasis. We then began treatment again, as she had tolerated Taxol Avastin, we started that again but she progressed soon after. She actually began having breast thickening on the left side as well as axillary metastasis which was brand-new for her, therefore we decided to biopsy the axillary metastasis, and recently got back findings from pathology when they compared that carcinoma to the slides from [place], this was certainly the same cancer and so she is having progression all over now of the endometrial cancer. Therefore we recently started her on Doxil/Avastin. She only received about 3 infusions of this thus far and we did dose reduce for tolerability. She has not been doing well at home, she has been having poor p.o. intake, she has been having difficulty passing stool but still passing some so not completely obstructed, she has been having increasing abdominal girth and what brought her in with severe shortness of breath. Upon admission she was found to have bilateral moderate pleural effusions, also moderate to large ascites. Patients came to the emergency department with the shortness of the breath and initial finding with a CT angiogram was negative for PE some pleural effusions and a large ascites and admitting in the hospital for further evaluation and treatments Past Medical History Cardiac Medical History: Reports: Hypertension - medication d/t chemo Denies: Coronary Artery Disease, Myocardial Infarction Pulmonary Medical History: Reports: Asthma - flovent Denies: Bronchitis, Chronic Obstructive Pulmonary Disease (COPD), Pneumonia Neurological Medical History: Denies: Seizures Malignancy Medical History: Reports: Other - Hx endometrium cancer Malignancy History Note: Endometrial cancer GI Medical History: Reports: Gastroesophageal Reflux Disease Denies: Hepatitis, Hiatal Hernia Musculoskeltal Medical History: Denies: Arthritis Hematology: Reports: Anemia Denies: Sickle Cell Disease Past Surgical History Past Surgical History: Reports: Section, Hysterectomy, Other - Axillary biopsy Denies: Amputation, Mastectomy, Pacemaker Social History Smoking Status: Never Smoker Frequency of Alcohol Use: None Hx Recreational Drug Use: No Drugs: None Hx Prescription Drug Abuse: No Family History Family History: Reviewed & Not Pertinent Parental Family History Reviewed: Yes Children Family History Reviewed: Yes Sibling(s) Family History Reviewed.: Yes Medication/Allergy Home Medications: Biotin [Biotin 10 mg Tablet] 1 tab PO DAILY 03/30/16 Amlodipine Besylate [Norvasc 5 mg Tablet] 5 mg PO Q12 11/30/16 Ondansetron [Zofran Odt] 8 mg PO Q8HP PRN 12/28/16 Docusate Sodium [Stool Softener] 100 mg PO BID 05/05/17 Fluticasone Propionate [Flovent Diskus 100 mcg] 1 puff IH BID 05/05/17 Metoprolol Tartrate [Lopressor 25 mg Tablet] 12.5 mg PO Q12 05/05/17 Multivitamins with Iron 1 tab PO DAILY 05/05/17 Polyethylene Glycol 3350 [Miralax] 17 gm PO DAILYP PRN 05/05/17 Tramadol HCl [Ultram 50 mg Tablet] 50 mg PO BIDP PRN 05/05/17 Allergies/Adverse Reactions: No Known Allergies Allergy (Verified 01/26/17 10:20) Review of Systems Constitutional: PRESENT: fatigue, weakness Nose, Mouth, and Throat: ABSENT: as per HPI, headache(s), mouth pain, sore throat, vertigo, other Cardiovascular: PRESENT: dyspnea on exertion Respiratory: PRESENT: dyspnea Gastrointestinal: PRESENT: bloating, nausea Musculoskeletal: PRESENT: back pain Neurological: ABSENT: as per HPI, abnormal gait, abnormal movements, abnormal speech, confusion, convulsions, dizziness, focal weakness, frequent falls, lack of coordination, memory loss, numbness, paresthesias, restless legs, syncope, tingling, tremor(s), vertigo, weakness, other Psychiatric: PRESENT: depression Physical Exam Vital Signs: Temp Pulse Resp BP Pulse Ox 97.9 F 80 16 136/84 H 100 05/05/17 07:49 05/05/17 07:49 05/05/17 07:49 05/05/17 07:49 05/05/17 07:49 Intake & Output 05/04/17 05/05/17 05/06/17 06:59 06:59 06:59 Intake Total 200 Balance 200 Weight 51 kg General appearance: PRESENT: no acute distress Eye exam: PRESENT: PERRLA Mouth exam: PRESENT: neck supple Respiratory exam: PRESENT: decreased breath sounds Cardiovascular exam: PRESENT: +S1, +S2 GI/Abdominal exam: PRESENT: ascites, distended, normal bowel sounds, soft Extremities exam: ABSENT: full ROM, left AKA, right AKA, left BKA, right BKA, calf tenderness, joint swelling, pedal edema, tenderness, other Musculoskeletal exam: PRESENT: ambulatory Neurological exam: PRESENT: alert, awake, oriented to person, oriented to place , oriented to time, oriented to situation Psychiatric exam: PRESENT: depressed Results Laboratory Results: 05/05/17 06:15 05/05/17 06:15 05/05/17 05/05/17 06:15 06:15 WBC 5.3 RBC 4.23 Hgb 9.0 L Hct 28.6 L MCV 68 L MCH 21.4 L MCHC 31.6 L RDW 16.6 H Plt Count 318 Sodium 136.6 L Potassium 4.2 Chloride 100 Carbon Dioxide 30 Anion Gap 7 BUN 9 Creatinine 0.70 Est GFR ( Amer) > 60 Est GFR (Non-Af Amer) > 60 Glucose 82 Calcium 8.7 Impressions: Chest X-Ray 05/04/17 00:00 IMPRESSION: New bilateral small pleural effusions. Similar lateral pulmonary nodularity. No pneumothorax. Minimal basilar subsegmental atelectasis. Chest/Abdomen CTA 05/04/17 20:07 IMPRESSION: New moderate size Bilateral pleural effusions. Basilar subsegmental atelectasis. Increased pulmonary nodularity throughout both lungs. NO PULMONARY EMBOLI.Numerous new rim enhancing lesions in the liver consistent with progressed metastatic disease. Ascites. Omental nodularity. Assessment & Plan - Diagnosis (1) Shortness of breath Is this a current diagnosis for this admission?: YesPlan: Most likely from the pleural effusion and the large ascites and problems of malignancy (2) Endometrial cancer Is this a current diagnosis for this admission?: YesPlan: With the metastatic disease consult oncology (3) Malignant ascites Is this a current diagnosis for this admission?: YesPlan: Scheduled for the paracentesis today (4) Pleural effusion Is this a current diagnosis for this admission?: YesPlan: Will get the paracentesis first and if the patient's to improve the symptoms then may be we can get the thoracocentesis (5) Hypertension Qualifiers: Hypertension type: essential hypertension Qualified Code(s): I10 - Essential (primary) hypertension Is this a current diagnosis for this admission?: YesPlan: Currently stable (6) Anemia Qualifiers: Anemia type: unspecified type Qualified Code(s): D64.9 - Anemia, unspecified Is this a current diagnosis for this admission?: YesPlan: Currently stable - Time Time Spent: 30 to 50 Minutes Medications reviewed and adjusted accordingly: Yes Anticipated discharge: Home Within: Other - Inpatient Certification Medical Necessity: Need Close Monitoring Due to Risk of Patient Decompensation 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 Continues to current medications. Discussed with the patient and the daughter in the room
[2017-05-05] MEDS: AMLODIPINE BESYLATE 5 MG TABLET PO SCH ×2 (11:31→21:33)
[2017-05-05] MEDS: METOPROLOL TARTRATE 25 MG TABLET PO SCH ×2 (11:32→21:34)
[2017-05-05] MEDS: DOCUSATE SODIUM 100 MG CAPSULE PO SCH ×2 (11:32→17:45)
--- NOTE | 2017-05-05 11:34 | RADIOLOGY REPORT (SQ) ---
EXAM DESCRIPTION: U/S ABD PARACENTESIS COMPLETED DATE/TIME: 05/05/2017 11:14 am REASON FOR STUDY: ascites COMPARISON None. LIMITATIONS: None. PROCEDURE: After obtaining informed consent, the patient was brought to the ultrasound suite. The p rocedure was performed with the patient on a gurney. Ultrasound was used to identify a prominent poc ket of ascites right lower quadrant. An appropriate access site was selected. The patient was prepp ed and draped in usual sterile fashion. The access site was anesthetized with 5 mL 1% lidocaine. A [id number]-M-[id number] needle was advanced into the fluid. After aspiration of fluid the needle, the angie ter was advanced off the needle into the fluid. A total of 3,300 mL of cloudy yellow fluid was remov ed. The patient tolerated the procedure well left the department in satisfactory condition. IMPRESSION: Successful ultrasound-guided paracentesis COMMENT: Patient medication list reviewed: Yes- Quality ID# [id number]:Eligible professional attests to doc umenting in the medical record they obtained, updated, or reviewed the patient's current medications. Quality ID #[id number]: The patient was prepped and draped using maximum sterile barrier technique including cap, mask, sterile gown, sterile gloves, a large sterile sheet, hand hygiene, and 2% Chlorhexidine fo r cutaneous antisepsis. When ultrasound is used, sterile ultrasound techniques are followed requiring sterile gel and sterile probes. Quality ID #[id number]: Final reports for procedures using fluoroscopy that document radiation exposure iman jensen, or exposure time and number of fluorographic images (if radiation exposure indices are not avail able) TECHNICAL DOCUMENTATION: JOB ID: [id number] [employer]- All Rights Reserved
[2017-05-05] MEDS: TRAMADOL HCL 50 MG TABLET PO PRN ×2 (11:37→21:49)
[2017-05-05] MEDS ORDERED: ALBUMIN HUMAN 50 ML IV ONE (13:00)
[2017-05-05 13:03] LABS: FLUID APPEARANCE TURBID; FLUID TYPE PERITONEAL
[2017-05-05 13:04] LABS: FLUID RBC DILUENT USED SALINE; FLUID RBC DILUTION FACTOR 5; FLUID RBC SIDE 1 49; FLUID RBC SIDE 2 51; TOTAL RBC SQUARES COUNTED FLD 225
[2017-05-05] MEDS ORDERED: POLYVINYL ALCOHOL 1.4% OPH SOLN 15 ML OU PRN (19:58)
[2017-05-06] MEDS: ACETAMINOPHEN 325 MG TABLET PO PRN ×2 (03:42→09:23)
[2017-05-06 05:17] LABS: ABSOLUTE LYMPHOCYTES (AUTO) 1.8 10^3/uL (0.5-4.7); ABSOLUTE MONOCYTES (AUTO) 0.6 10^3/uL (0.1-1.4); ABSOLUTE NEUT (AUTO) 4.2 10^3/uL (1.7-8.2); BASOPHILS % (AUTO) 0.6 % (0-2); EOSINOPHILS % (AUTO) 0.3 % (0-6); HEMATOCRIT 33.5 % (36.0-47.0); HEMOGLOBIN 10.5 g/dL (12.0-15.5); LYMPHOCYTES % (AUTO) 27.3 % (13-45); MEAN CORPUSCULAR HEMOGLOBIN 21.2 pg (27.0-33.4); MEAN CORPUSCULAR HGB CONC 31.4 g/dL (32.0-36.0); MEAN CORPUSCULAR VOLUME 68 fl (80-97); RED BLOOD COUNT 4.95 10^6/uL (3.72-5.28); RED CELL DISTRIBUTION WIDTH 16.8 % (11.5-14.0); SEGMENTED NEUTROPHILS % (AUTO) 62.8 % (42-78); WHITE BLOOD COUNT 6.7 10^3/uL (4.0-10.5)
[2017-05-06 05:39] LABS: ANION GAP 10 (5-19); BLOOD UREA NITROGEN 11 mg/dL (7-20); CALCIUM 9.6 mg/dL (8.4-10.2); CARBON DIOXIDE 28 mmol/L (22-30); CHLORIDE 98 mmol/L (98-107); CREATININE RESULT 0.85 mg/dL (0.52-1.25); GLUCOSE 91 mg/dL (75-110); POTASSIUM 4.5 mmol/L (3.6-5.0); SODIUM 136.1 mmol/L (137-145)
[2017-05-06] MEDS: LANSOPRAZOLE 30 MG TAB.RAP.DR PO SCH (05:44)
--- NOTE | 2017-05-06 08:20 | RADIOLOGY REPORT (SQ) ---
EXAM DESCRIPTION: CHEST PA/LAT COMPLETED DATE/TIME: 05/06/2017 8:06 am REASON FOR STUDY: pleural effusion COMPARISON: 12/06/2016 EXAM PARAMETERS: NUMBER OF VIEWS: two views TECHNIQUE: Digital Frontal and Lateral radiographic views of the chest acquired. RADIATION DOSE: NA LIMITATIONS: none FINDINGS: LUNGS AND PLEURA: There are multiple bilateral pulmonary nodules. These have increased in number since prior study. The large nodule in the left medial base has decreased in size or has res olved. There are small bilateral pleural effusions. MEDIASTINUM AND HILAR STRUCTURES: No masses or contour abnormalities. HEART AND VASCULAR STRUCTURES: Heart normal size. No evidence for failure. BONES: No acute findings. HARDWARE: [id number] remains in place. OTHER: No other significant finding. IMPRESSION: Multiple bilateral pulmonary nodules consistent with metastatic disease. Small pleural effusions. [id number] remains in place. TECHNICAL DOCUMENTATION: JOB ID: [id number] [employer]- All Rights Reserved
[2017-05-06] MEDS: DOCUSATE SODIUM 100 MG CAPSULE PO SCH (09:22)
[2017-05-06] MEDS: METOPROLOL TARTRATE 25 MG TABLET PO SCH (09:22)
[2017-05-06] MEDS: AMLODIPINE BESYLATE 5 MG TABLET PO SCH (09:22)
--- NOTE | 2017-05-06 10:26 | PDOC PROGRESS REPORT ---
Subjective Progress Note for:: 05/06/17 Subjective:: Patient had paracentesis yesterday with greater than 3 L out, she feels much better today, she ate her dinner and ate all of her breakfast, his plan for trying to walk today to see if she can go home. Physical Exam Vital Signs: Temp Pulse Resp BP Pulse Ox 98.3 F 84 16 143/82 H 99 05/06/17 07:38 05/06/17 07:38 05/06/17 07:38 05/06/17 07:38 05/06/17 07:38 Intake & Output 05/05/17 05/06/17 05/07/17 06:59 06:59 06:59 Intake Total 200 1850 Balance 200 1850 Weight 51 kg 50 kg General appearance: PRESENT: no acute distress, well-developed, well-nourished Head exam: PRESENT: atraumatic, normocephalic Eye exam: PRESENT: conjunctiva pink, EOMI, PERRLA. ABSENT: scleral icterus Ear exam: PRESENT: normal external ear exam Mouth exam: PRESENT: moist, tongue midline Neck exam: ABSENT: carotid bruit, JVD, lymphadenopathy, thyromegaly Respiratory exam: PRESENT: clear to auscultation clyde. ABSENT: rales, rhonchi, wheezes Cardiovascular exam: PRESENT: RRR. ABSENT: diastolic murmur, rubs, systolic murmur Pulses: PRESENT: normal dorsalis pedis pul Vascular exam: PRESENT: normal capillary refill GI/Abdominal exam: PRESENT: normal bowel sounds, soft. ABSENT: distended, guarding, mass, organolmegaly, rebound, tenderness Rectal exam: PRESENT: deferred Extremities exam: PRESENT: full ROM. ABSENT: calf tenderness, clubbing, pedal edema Neurological exam: PRESENT: alert, awake, oriented to person, oriented to place , oriented to time, oriented to situation, CN II-XII grossly intact. ABSENT: motor sensory deficit Psychiatric exam: PRESENT: appropriate affect, normal mood. ABSENT: homicidal ideation, suicidal ideation Skin exam: PRESENT: dry, intact, warm. ABSENT: cyanosis, rash Results Laboratory Results: 05/06/17 04:45 05/06/17 04:45 05/05/17 05/05/17 05/06/17 06:15 10:35 04:45 WBC 6.7 RBC 4.95 Hgb 10.5 L Hct 33.5 L MCV 68 L MCH 21.2 L MCHC 31.4 L RDW 16.8 H Plt Count 375 Seg Neutrophils % 62.8 Lymphocytes % 27.3 Monocytes % 9.0 Eosinophils % 0.3 Basophils % 0.6 Absolute Neutrophils 4.2 Absolute Lymphocytes 1.8 Absolute Monocytes 0.6 Absolute Eosinophils 0.0 Absolute Basophils 0.0 Sodium Potassium Chloride Carbon Dioxide Anion Gap BUN Creatinine Est GFR ( Amer) Est GFR (Non-Af Amer) Glucose Calcium Total Protein 5.3 L Fluid Type PERITONEAL Fluid Source ASCITES Fluid Color YELLOW Fluid Appearance TURBID Fluid Viscosity SLIGHTLY VISCOUS Fluid WBC 139 Fluid RBC 277 05/06/17 04:45 WBC RBC Hgb Hct MCV MCH MCHC RDW Plt Count Seg Neutrophils % Lymphocytes % Monocytes % Eosinophils % Basophils % Absolute Neutrophils Absolute Lymphocytes Absolute Monocytes Absolute Eosinophils Absolute Basophils Sodium 136.1 L Potassium 4.5 Chloride 98 Carbon Dioxide 28 Anion Gap 10 BUN 11 Creatinine 0.85 Est GFR ( Amer) > 60 Est GFR (Non-Af Amer) > 60 Glucose 91 Calcium 9.6 Total Protein Fluid Type Fluid Source Fluid Color Fluid Appearance Fluid Viscosity Fluid WBC Fluid RBC Impressions: Chest/Abdomen CTA 05/04/17 20:07 IMPRESSION: New moderate size Bilateral pleural effusions. Basilar subsegmental atelectasis. Increased pulmonary nodularity throughout both lungs. NO PULMONARY EMBOLI.Numerous new rim enhancing lesions in the liver consistent with progressed metastatic disease. Ascites. Omental nodularity. Paracentesis Ultrasound 05/05/17 00:00 IMPRESSION: Successful ultrasound-guided paracentesis Chest X-Ray 05/06/17 00:00 IMPRESSION: Multiple bilateral pulmonary nodules consistent with metastatic disease. Small pleural effusions. [id number] remains in place. Assessment & Plan - Diagnosis (1) Pleural effusion Is this a current diagnosis for this admission?: YesPlan: Probably malignant, too small for thoracentesis, we will just monitor for now. (2) Malignant ascites Is this a current diagnosis for this admission?: YesPlan: Cytology pending but most likely malignant ascites, may recur, hold on further paracentesis for now, we will arrange as an outpatient as needed. (3) Endometrial cancer Is this a current diagnosis for this admission?: YesPlan: Plan to continue with therapy - Time Time Spent with patient: 35 or more minutes Critical Time spent with patient: 35 or more minutes Disposition: Today spent greater than 40 minutes in discussion with family about next steps of care, probable discharge today as long as patient can get around a little bit.
[2017-05-06 10:49] VITALS: BP 131/80
--- NOTE | 2017-05-06 12:26 | PDOC DISCHARGE SUMMARY ---
General - Admit/Disc Date/PCP Admission Date/Primary Care Provider: 05/05/17 00:18 Discharge Date: 05/06/17 - Discharge Diagnosis (1) Shortness of breath Is this a current diagnosis for this admission?: YesSummary: Most likely underlying ascites status post paracentesis is all improved (2) Endometrial cancer Is this a current diagnosis for this admission?: YesSummary: Currently follow with oncology (3) Malignant ascites Is this a current diagnosis for this admission?: YesSummary: Status post paracentesis (4) Pleural effusion Is this a current diagnosis for this admission?: YesSummary: Chest x-ray shows a very mild pleural effusions patient is currently doing well no need for thoracocentesis (5) Hypertension Is this a current diagnosis for this admission?: YesSummary: Currently stable with the continuous medications (6) Anemia Is this a current diagnosis for this admission?: Yes - Additional Information Discharge Activity: Activity As Tolerated, Balance Activity w/Rest Home Medications: Biotin [Biotin 10 mg Tablet] 1 tab PO DAILY 03/30/16 Amlodipine Besylate [Norvasc 5 mg Tablet] 5 mg PO Q12 11/30/16 Ondansetron [Zofran Odt] 8 mg PO Q8HP PRN 12/28/16 Docusate Sodium [Stool Softener] 100 mg PO BID 05/05/17 Fluticasone Propionate [Flovent Diskus 100 mcg] 1 puff IH BID 05/05/17 Metoprolol Tartrate [Lopressor 25 mg Tablet] 12.5 mg PO Q12 05/05/17 Multivitamins with Iron 1 tab PO DAILY 05/05/17 Polyethylene Glycol 3350 [Miralax] 17 gm PO DAILYP PRN 05/05/17 Tramadol HCl [Ultram 50 mg Tablet] 50 mg PO BIDP PRN 05/05/17 History of Present Illness History of Present Illness: DENIS HAIR is a 57 year old female with known history of stage IV endometrial cancer, we have been taking care of her now for about 2 years. 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 At that time we monitored her for a few months but she began having progressive increase in size of the abdominal nodule. So we decided on reinitiating therapy and she received another 6 months of treatment with Taxol/Avastin and actually did very well with that, the disease responded appropriately, we then gave her a treatment break for several months, then about 9 months ago she began progressing again, and we started her on Gemzar/Avastin, unfortunately she had severe cytopenias and decided herself to hold on therapy at that point. She was held on therapy for about 2 months but then started progressing in October of last year with omental metastasis. We then began treatment again, as she had tolerated Taxol Avastin, we started that again but she progressed soon after. She actually began having breast thickening on the left side as well as axillary metastasis which was brand-new for her, therefore we decided to biopsy the axillary metastasis, and recently got back findings from pathology when they compared that carcinoma to the slides from [place], this was certainly the same cancer and so she is having progression all over now of the endometrial cancer. Therefore we recently started her on Doxil/Avastin. She only received about 3 infusions of this thus far and we did dose reduce for tolerability. She has not been doing well at home, she has been having poor p.o. intake, she has been having difficulty passing stool but still passing some so not completely obstructed, she has been having increasing abdominal girth and what brought her in with severe shortness of breath. Upon admission she was found to have bilateral moderate pleural effusions, also moderate to large ascites. Patients came to the emergency department with the shortness of the breath and initial finding with a CT angiogram was negative for PE some pleural effusions and a large ascites and admitting in the hospital for further evaluation and treatments Hospital Course Hospital Course: This is a 57-year-old female with a metastatic endometrial cancer came to the emergency department with the complaining of shortness of the breath and initial CT angiogram was negative for any pulmonary embolism and was so some right sided effusions. When we examined the patient's patient have a significant amount of the ascites instead of the right-sided pleural effusion and patient underwent for the paracentesis and removed a 3.5 L of the fluid. Patient's feeling much better after removal of the fluid and patient's repeat chest x-ray was showing very small pleural effusion and no need for any thoracocentesis Patient's walk in the hallway without oxygen and denied any short of breath no chest pain Patient seen by the oncology and suggest the patient's follow outpatients Discussed with the daughter over the all the patient's conditions and the report and overall is not a good prognosis due to the metastatic disease and possible recurrent accumulation of the ascites fluid and possible pleural effusions to Physical Exam Vital Signs: Temp Pulse Resp BP Pulse Ox 98.3 F 84 16 131/80 H 99 05/06/17 10:44 05/06/17 10:44 05/06/17 10:44 05/06/17 10:44 05/06/17 10:44 Intake & Output 05/05/17 05/06/17 05/07/17 06:59 06:59 06:59 Intake Total 200 1850 Balance 200 1850 Weight 51 kg 50 kg General appearance: PRESENT: no acute distress, thin Head exam: PRESENT: atraumatic, normocephalic Eye exam: PRESENT: conjunctiva pink, EOMI, PERRLA. ABSENT: scleral icterus Ear exam: PRESENT: normal external ear exam Mouth exam: PRESENT: moist, tongue midline Neck exam: PRESENT: full ROM. ABSENT: carotid bruit, JVD, lymphadenopathy, thyromegaly Cardiovascular exam: PRESENT: RRR. ABSENT: diastolic murmur, rubs, systolic murmur Pulses: PRESENT: normal dorsalis pedis pul, +2 pedal pulses bilateral Vascular exam: PRESENT: normal capillary refill GI/Abdominal exam: PRESENT: normal bowel sounds, soft. ABSENT: distended, guarding, mass, organolmegaly, rebound, tenderness Rectal exam: PRESENT: deferred Neurological exam: PRESENT: alert, awake, oriented to person, oriented to place , oriented to time, oriented to situation, CN II-XII grossly intact. ABSENT: motor sensory deficit Psychiatric exam: PRESENT: appropriate affect, normal mood. ABSENT: homicidal ideation, suicidal ideation Skin exam: PRESENT: dry, intact, warm. ABSENT: cyanosis, rash Results Laboratory Results: 05/06/17 04:45 05/06/17 04:45 05/05/17 05/05/17 05/06/17 06:15 10:35 04:45 WBC 6.7 RBC 4.95 Hgb 10.5 L Hct 33.5 L MCV 68 L MCH 21.2 L MCHC 31.4 L RDW 16.8 H Plt Count 375 Seg Neutrophils % 62.8 Lymphocytes % 27.3 Monocytes % 9.0 Eosinophils % 0.3 Basophils % 0.6 Absolute Neutrophils 4.2 Absolute Lymphocytes 1.8 Absolute Monocytes 0.6 Absolute Eosinophils 0.0 Absolute Basophils 0.0 Sodium Potassium Chloride Carbon Dioxide Anion Gap BUN Creatinine Est GFR ( Amer) Est GFR (Non-Af Amer) Glucose Calcium Total Protein 5.3 L Fluid Type PERITONEAL Fluid Source ASCITES Fluid Color YELLOW Fluid Appearance TURBID Fluid Viscosity SLIGHTLY VISCOUS Fluid WBC 139 Fluid RBC 277 05/06/17 04:45 WBC RBC Hgb Hct MCV MCH MCHC RDW Plt Count Seg Neutrophils % Lymphocytes % Monocytes % Eosinophils % Basophils % Absolute Neutrophils Absolute Lymphocytes Absolute Monocytes Absolute Eosinophils Absolute Basophils Sodium 136.1 L Potassium 4.5 Chloride 98 Carbon Dioxide 28 Anion Gap 10 BUN 11 Creatinine 0.85 Est GFR ( Amer) > 60 Est GFR (Non-Af Amer) > 60 Glucose 91 Calcium 9.6 Total Protein Fluid Type Fluid Source Fluid Color Fluid Appearance Fluid Viscosity Fluid WBC Fluid RBC Impressions: Chest/Abdomen CTA 05/04/17 20:07 IMPRESSION: New moderate size Bilateral pleural effusions. Basilar subsegmental atelectasis. Increased pulmonary nodularity throughout both lungs. NO PULMONARY EMBOLI.Numerous new rim enhancing lesions in the liver consistent with progressed metastatic disease. Ascites. Omental nodularity. Paracentesis Ultrasound 05/05/17 00:00 IMPRESSION: Successful ultrasound-guided paracentesis Chest X-Ray 05/06/17 00:00 IMPRESSION: Multiple bilateral pulmonary nodules consistent with metastatic disease. Small pleural effusions. [id number] remains in place. Plan Time Spent: Less than 30 Minutes - Patient at this point discharged home with the stable conditions ,Patient's p.o. intake is fair and patient's walk in the hallway without oxygen and discussed with the daughter. Patient's following office in 1 week we will repeat the chest x-ray and to follow with the oncology
== END 2017-05-06 13:24 | disposition home or self-care (01) | DRG 755 ==
LOC: ER 19:05 → EH 05-05 00:18 → 3N 05-05 02:04
PROVIDERS: ADMIT Family Medicine; ATTEND Family Medicine
PROC: 0W9G3ZZ Drainage of Peritoneal Cavity, Percutaneous Approach (ICD-10-PCS; principal; 2017-05-05)
DX: C54.1 Malignant neoplasm of endometrium (principal); R18.0 Malignant ascites; J91.0 Malignant pleural effusion; I10 Essential (primary) hypertension; J45.909 Unspecified asthma, uncomplicated; K21.9 Gastro-esophageal reflux disease without esophagitis; D64.9 Anemia, unspecified; Z92.21 Personal history of antineoplastic chemotherapy
CPT/HCPCS: 36415; 49083; 71010; 71020; 71275; 80048; 80053; 81001; 82150; 82803; 82945; 83605; 83615; 84155; 84157; 85025; 85027; 85610; 87040; 87070; 87075; 87077; 87086; 87205; 88305; 88341; 88342; 89050; 93005; 93010; 96360; 99285; J3490; J7040; P9047

== ENCOUNTER 2017-05-22 03:22 | Inpatient (IN) | payer MEDICAID ==
[2017-05-22] MEDS ORDERED: FENTANYL CITRATE INJ/PF 100 MCG/2 ML AMPUL IV ONE (03:52)
[2017-05-22] MEDS ORDERED: ONDANSETRON HCL INJ/PF 4 MG/2 ML SDV IV ONE (03:52)
--- NOTE | 2017-05-22 04:12 | ER Document Report ---
ED General - General Chief Complaint: Abdominal Pain Stated Complaint: ABDOMINAL PAIN/DIFFICULTY BREATHING Time Seen by Provider: 05/22/17 03:36 Information source: Patient, Relative - daughter Notes: Patient presents emergency department with complaints of abdominal pain low back pain vomiting. Patient reports she woke up around midnight with severe low back pain and vomiting. Patient has history of endometrial cancer with metastases. Daughter reports patient will only take tramadol for her pain but tonight she is hurting more, requesting pain medication. Pt is gagging, spitting into a emesis bag. Denies fever/vomiting. Denies pain with void. She denies urinary frequency. LBM yesterday. TRAVEL OUTSIDE OF THE [place] IN LAST 30 DAYS: No - HPI Onset: Other - Around midnight Onset/Duration: Sudden, Persistent Quality of pain: Achy Severity: Severe Pain Level: 5 Associated symptoms: Vomiting, Shortness of breath Exacerbated by: Denies Relieved by: Denies Similar symptoms previously: Yes Recently seen / treated by doctor: Yes - Related Data Allergies/Adverse Reactions: No Known Allergies Allergy (Verified 05/22/17 03:25) Home Medications: Current Home Medications Amlodipine Besylate [Norvasc 5 mg Tablet] 5 mg PO Q12 05/22/17 [History] Biotin [Biotin 1 mg Tablet] 1 mg PO DAILY 05/22/17 [History] Docusate Sodium [Colace 100 mg Capsule] 100 mg PO BID 05/22/17 [History] Fluticasone Propionate [Flovent Diskus 100 mcg] 1 puff IH BID 05/22/17 [History] Metoprolol Tartrate [Lopressor 25 mg Tablet] 12.5 mg PO Q12 05/22/17 [History] Multivitamin [Tab-A-Sylvia (Multiple Vitamin) Tablet] 1 tab PO DAILY 05/22/17 [ History] Ondansetron [Zofran Odt] 8 mg PO Q8HP PRN 05/22/17 [History] Polyethylene Glycol 3350 [Miralax Powder 17 gm/Packet] 17 gm PO DAILY 05/22/17 [ History] Tramadol HCl [Ultram 50 mg Tablet] 50 mg PO BIDP PRN 05/22/17 [History] Past Medical History - General Information source: Patient Last Menstrual Period: hyst - Social History Smoking Status: Unknown if Ever Smoked Cigarette use (# per day): No Frequency of alcohol use: None Drug Abuse: None Lives with: Family Family History: Reviewed & Not Pertinent Patient has suicidal ideation: No Patient has homicidal ideation: No - Past Medical History Cardiac Medical History: Reports: Hx Hypertension - medication d/t chemo Denies: Hx Coronary Artery Disease, Hx Heart Attack Pulmonary Medical History: Reports: Hx Asthma - flovent Denies: Hx Bronchitis, Hx COPD, Hx Pneumonia Neurological Medical History: Denies: Hx Cerebrovascular Accident, Hx Seizures Renal/ Medical History: Denies: Hx Peritoneal Dialysis Malignancy Medical History: Reports: Other - endometrial cancer with mets GI Medical History: Reports: Hx Gastroesophageal Reflux Disease. Denies: Hx Hepatitis, Hx Hiatal Hernia, Hx Ulcer Musculoskeltal Medical History: Denies Hx Arthritis Infectious Medical History: Denies: Hx Hepatitis Past Surgical History: Reports: Hx Section, Hx Gynecologic Surgery, Hx Hysterectomy, Other - Axillary biopsy. Denies: Hx Mastectomy, Hx Open Heart Surgery, Hx Pacemaker - Immunizations Hx Diphtheria, Pertussis, Tetanus Vaccination: No - unknown Physical Exam - Vital signs Vitals: Temp Pulse Resp BP Pulse Ox 98.0 F 115 H 20 130/90 H 97 05/22/17 03:25 05/22/17 03:25 05/22/17 03:25 05/22/17 03:25 05/22/17 03:25 - General General appearance: Other - cachectic In distress: Mild - vomiting - HEENT Head: Normocephalic Eyes: Normal Conjunctiva: No: Injected Extraocular movements intact: Yes Mouth/Lips: Normal - Respiratory Respiratory status: No respiratory distress Chest status: Nontender Breath sounds: Decreased air movement, Rhonchi Chest palpation: No: [place] frothy sputum, Purulent sputum - Cardiovascular Rhythm: Regular, Tachycardia Heart sounds: S1 appreciated, S2 appreciated Murmur: No - Abdominal Inspection: Normal Distension: Distended Bowel sounds: Normal Tenderness: Tender Organomegaly: No organomegaly - Back Back: Normal, Tender - No obvious deformity no erythema no warmth no swelling good distal movement and sensation Course - Re-evaluation Re-evalutation: 05/22/17 05:[address] Delatorre per [facility] guidelines. Agrees with plan of care, pt reports feeling much better after fentanyl. 05/22/17 06:03 CT notes increase in ascites and omental carcinomatosis interval development of retroperitoneal adenopathy, and metastatic small bowel loops with air-fluid level of the left upper quadrant which may represent ileus based on her symptoms probably does. Bilateral pleural effusions with bibasilar atelectasis and multiple pulmonary nodules. Patient also has a small pericardial effusion. Reviewed ct with dr delatorre, he advised admission. Pt pcp is Dr Landeros, Dr Panda on for dr landeros. Contacted Dr Panda, he agrees with admission and request to be called for orders. - Vital Signs Vital signs: Temp Pulse Resp BP Pulse Ox 98.6 F 126 H 21 H 133/93 H 98 05/22/17 15:39 05/22/17 15:39 05/22/17 15:39 05/22/17 15:39 05/22/17 15:39 - Laboratory Result Diagrams: 05/22/17 04:00 05/22/17 04:00 Laboratory results interpreted by me: 05/22/17 05/22/17 05/22/17 04:00 04:00 04:25 Hgb 10.5 L Hct 34.4 L MCV 66 L MCH 20.2 L MCHC 30.7 L RDW 16.4 H Plt Count 548 H APTT Chloride 90 L Carbon Dioxide 34 H Albumin 3.0 L Urine Protein 100 H Urine Ketones 20 H Ur Leukocyte Esterase MODERATE H Urine Ascorbic Acid 40 H 05/22/17 10:30 Hgb Hct MCV MCH MCHC RDW Plt Count APTT 39.2 H Chloride Carbon Dioxide Albumin Urine Protein Urine Ketones Ur Leukocyte Esterase Urine Ascorbic Acid - Diagnostic Test Radiology reviewed: Image reviewed, Reports reviewed - Diagnostic report text EXAM DESCRIPTION: CHEST SINGLE VIEW COMPLETED DATE/TIME: 05/22/2017 4:36 am REASON FOR STUDY: SOB COMPARISON: CT chest 05/04/2017. Chest x-ray 05/06/2017 EXAM PARAMETERS: NUMBER OF VIEWS: One view. TECHNIQUE: Single frontal radiographic view of the chest acquired. RADIATION DOSE: NA LIMITATIONS: None. FINDINGS: LUNGS AND PLEURA: There are small bilateral pleural effusions and multiple bilateral pulmonary nodules. No pneumothorax. MEDIASTINUM AND HILAR STRUCTURES: Stable. HEART AND VASCULAR STRUCTURES: Heart normal in size. No overt vascular congestion. BONES: No acute findings. HARDWARE: Right-sided Port-A-Cath with the tip at the atriocaval junction. IMPRESSION: Small bilateral pleural effusions. Multiple bilateral pulmonary nodules, consistent with metastatic disease. - EKG Interpretation by Me Rate: Tachycardia - Consults dr panda Time consulted: 06:05 Reason for consultation: 05/22/17 06:[address] Landeros Consulted provider: will see as inpatient Discharge - Discharge Clinical Impression: ascites , Malignant neoplasm of endometrium Abdominal pain Qualifiers: Abdominal location: generalized Qualified Code(s): R10.84 - Generalized abdominal pain Vomiting Qualifiers: Vomiting type: unspecified Vomiting Intractability: non-intractable Condition: Stable Disposition: ADMITTED INPATIENT Admitting Provider: Lorenzo Unit Admitted: [facility]
[2017-05-22 04:19] LABS: ABSOLUTE BASOPHILS # (AUTO) 0.1 10^3/uL (0.0-0.2); ABSOLUTE LYMPHOCYTES (AUTO) 1.5 10^3/uL (0.5-4.7); ABSOLUTE NEUT (AUTO) 5.3 10^3/uL (1.7-8.2); HEMATOCRIT 34.4 % (36.0-47.0); HEMOGLOBIN 10.5 g/dL (12.0-15.5); HGB HCT DIFFERENCE -2.9; LYMPHOCYTES % (AUTO) 19.5 % (13-45); MEAN CORPUSCULAR HEMOGLOBIN 20.2 pg (27.0-33.4); MEAN CORPUSCULAR HGB CONC 30.7 g/dL (32.0-36.0); MEAN CORPUSCULAR VOLUME 66 fl (80-97); MONOCYTES % (AUTO) 12.3 % (3-13); RED BLOOD COUNT 5.22 10^6/uL (3.72-5.28); RED CELL DISTRIBUTION WIDTH 16.4 % (11.5-14.0); SEGMENTED NEUTROPHILS % (AUTO) 67.2 % (42-78); WHITE BLOOD COUNT 7.9 10^3/uL (4.0-10.5)
[2017-05-22 04:39] LABS: ALANINE AMINOTRANSFERASE 36 U/L (9-52); ALKALINE PHOSPHATASE 104 U/L (38-126); ANION GAP 14 (5-19); ASPARTATE AMINO TRANSFERASE 36 U/L (14-36); BILIRUBIN,DIRECT 0.3 mg/dL (0.0-0.4); BILIRUBIN,TOTAL 0.5 mg/dL (0.2-1.3); BLOOD UREA NITROGEN 15 mg/dL (7-20); CALCIUM 9.8 mg/dL (8.4-10.2); CARBON DIOXIDE 34 mmol/L (22-30); CHLORIDE 90 mmol/L (98-107); CREATININE RESULT 0.87 mg/dL (0.52-1.25); GLUCOSE 89 mg/dL (75-110); POTASSIUM 4.3 mmol/L (3.6-5.0); SODIUM 137.8 mmol/L (137-145); TOTAL PROTEIN 6.5 g/dL (6.3-8.2)
--- NOTE | 2017-05-22 04:57 | RADIOLOGY REPORT (SQ) ---
EXAM DESCRIPTION: CHEST SINGLE VIEW COMPLETED DATE/TIME: 05/22/2017 4:36 am REASON FOR STUDY: SOB COMPARISON: CT chest 05/04/2017. Chest x-ray 05/06/2017 EXAM PARAMETERS: NUMBER OF VIEWS: One view. TECHNIQUE: Single frontal radiographic view of the chest acquired. RADIATION DOSE: NA LIMITATIONS: None. FINDINGS: LUNGS AND PLEURA: There are small bilateral pleural effusions and multiple bilateral pulmo nary nodules. No pneumothorax. MEDIASTINUM AND HILAR STRUCTURES: Stable. HEART AND VASCULAR STRUCTURES: Heart normal in size. No overt vascular congestion. BONES: No acute findings. HARDWARE: Right-sided Port-A-Cath with the tip at the atriocaval junction. IMPRESSION: Small bilateral pleural effusions. Multiple bilateral pulmonary nodules, consistent wit h metastatic disease. TECHNICAL DOCUMENTATION: JOB ID: [id number]
[2017-05-22 05:20] LABS: APPEARANCE,URINE TURBID; BILIRUBIN,URINE NEGATIVE (NEGATIVE); GLUCOSE, URINE NEGATIVE (NEGATIVE); KETONES,URINE 20 mg/dL (NEGATIVE); LEUKOCYTE ESTERASE,URINE MODERATE (NEGATIVE); NITRITE,URINE NEGATIVE (NEGATIVE); PROTEIN,URINE 100 mg/dL (NEGATIVE); URINE SPECIFIC GRAVITY 1.012; UROBILINOGEN,URINE NEGATIVE mg/dL (<2.0)
[2017-05-22 05:24] LABS: BACTERIA,URINE TRACE /HPF; RBC,URINE RARE /HPF
[2017-05-22] MEDS ORDERED: PROMETHAZINE HCL 25 MG SUPP.RECT PR ONE (05:27)
--- NOTE | 2017-05-22 05:49 | RADIOLOGY REPORT (SQ) ---
EXAM DESCRIPTION: CT ABD/PELVIS WITH IV ONLY COMPLETED DATE/TIME: 05/22/2017 5:18 am REASON FOR STUDY: ABDPAIN VOMITING, ASCITES ENDOM CA COMPARISON: CT abdomen and pelvis 03/10/2017. CT chest 05/04/2017 TECHNIQUE: CT scan of the abdomen and pelvis performed using helical scanning technique with dynamic intravenous contrast injection. No oral contrast. Images reviewed with lung, soft tissue, and bone windows. Reconstructed coronal and sagittal MPR images reviewed. Delayed images for evaluation of the urinary system also acquired. All images stored on PACS. All CT scanners at this facility use dose modulation, iterative reconstruction, and/or weight based d osing when appropriate to reduce radiation dose to as low as reasonably achievable (ALARA). [facility]: Dose Right [facility]: CareDose [facility]: Dose Right [facility]: Teradose 4D [facility]: [employer] CONTRAST TYPE AND DOSE: contrast/concentration: Isovue 370.00 mg/ml; Total Contrast Delivered: 52.0 ml; Total Saline Delivered: 65.0 ml RENAL FUNCTION: Creatinine 0.87 RADIATION DOSE: Up-to-date CT equipment and radiation dose reduction techniques were employed. CTDIv ol: 4.8 - 5.9 mGy. DLP: 523 mGy-cm.. LIMITATIONS: None. FINDINGS: LOWER CHEST: Interval increase in the bilateral pleural effusions with bibasilar atelectas is. Redemonstration of multiple bilateral pulmonary nodules. There is a small pericardial effusion. LIVER: Interval increase size of the low-density metastatic lesion at the junction of the right and l eft hepatic lobes measuring approximately 6.4 x 6.0 cm. Interval development of multiple additional low density lesions in the liver. SPLEEN: Normal size. PANCREAS: No significant calcifications. No adjacent inflammation or peripancreatic fluid collections . Pancreatic duct not dilated. GALLBLADDER: Present. ADRENAL GLANDS: No significant masses or asymmetry. RIGHT KIDNEY AND URETER: Subcentimeter hypodensity at the right kidney, too small to be adequately ch aracterized. No significant calcifications. No hydronephrosis or hydroureter. LEFT KIDNEY AND URETER: No significant calcifications. No hydronephrosis or hydroureter. AORTA AND VESSELS: No abdominal aortic aneurysm. RETROPERITONEUM: No retroperitoneal hemorrhage. Interval development of retroperitoneal adenopathy, a left para-aortic lymph node is measuring 2.3 x 1.5 cm. BOWEL AND PERITONEAL CAVITY: Mildly dilated small bowel loops with air-fluid levels in the left upper quadrant. Interval increase in the abdominal ascites. Redemonstration of omental carcinomatosis. APPENDIX: Not visualized. PELVIS: The urinary bladder is decompressed. Large amount of free fluid in the pelvis. ABDOMINAL WALL: Redemonstration of calcified lesion in the right lower quadrant abdominal wall measur ing approximately 2.6 x 2.3 cm, not significantly changed in the interval. There is diffuse subcutan eous edema. BONES: Multilevel degenerative changes in the spine. IMPRESSION: Progression of disease with interval increase in size and number of the hepatic metastas es. Interval increase in ascites. Omental carcinomatosis. Interval development of retroperitoneal adenopathy, probably metastatic. Mildly dilated small bowel loops with air-fluid levels in the left upper quadrant, may represent ileu s versus developing obstruction. Diffuse subcutaneous edema. No significant interval change in the calcified lesion in the right lowe r quadrant abdominal wall. Interval increase in the bilateral pleural effusions with bibasilar atelectasis. Multiple bilateral pulmonary nodules, consistent with metastatic disease. Small pericardial effusion. TECHNICAL DOCUMENTATION: JOB ID: [id number] [id number] Quality ID # [id number]: Final reports with documentation of one or more dose reduction techniques (e.g., Au tomated exposure control, adjustment of the mA and/or kV according to patient size, use of iterative reconstruction technique) 2010 [employer]- All Rights Reserved
--- NOTE | 2017-05-22 09:35 | EKG REPORT ---
SEVERITY:- BORDERLINE ECG - SINUS TACHYCARDIA LEFT AXIS DEVIATION BORDERLINE R WAVE PROGRESSION, ANTERIOR LEADS : Confirmed by: Bony Faria 22-May-2017 09:34:17
--- NOTE | 2017-05-22 10:17 | PDOC H&P ---
History of Present Illness Admission Date/PCP: 05/22/17 06:27 JOANIE PRIETO MD History of Present Illness: DENIS HAIR is a 57 year old female, she has malignant neoplasm of the endometrium. She came to the emergency room because of progressive abdominal pain that was worsened in the last 24 hours. She was diagnosed with endometrial cancer 2 years ago, she had total hysterectomy. She was followed initially at [facility] in [place], she now follows with local oncologist, Dr. Shanks in [facility]. She had abdominal paracentesis couple of days ago because of arthritis, she is also on chemotherapy she had a CT scan of the abdomen and pelvis in the emergency room, showed progression of disease with interval increase in size and number of hepatic metastases, interval increase in ascites, omental metastases, interval development of retroperitoneal adenopathy, mildly dilated small bowel loops with air-fluid level left upper quadrant may represent ileus versus obstruction. Interval increase in the bilateral pleural effusion with bibasilar atelectasis, multiple bilateral pulmonary nodules consistent with metastatic disease. Patient is a full code, I discussed CODE STATUS with the patient, consultation will be requested from oncology, she will be scheduled for abdominal paracentesis Past Medical History Cardiac Medical History: Reports: Hypertension - medication d/t chemo Pulmonary Medical History: Reports: Asthma - flovent Malignancy Medical History: Reports: Other - Malignant neoplasm of endometrium, stage IV GI Medical History: Reports: Gastroesophageal Reflux Disease Hematology: Reports: Anemia Past Surgical History Past Surgical History: Reports: Section, Hysterectomy, Other - Axillary biopsy Social History Lives with: Family Smoking Status: Unknown if Ever Smoked Frequency of Alcohol Use: None Hx Recreational Drug Use: No Drugs: None Hx Prescription Drug Abuse: No Family History Family History: Reviewed & Not Pertinent Parental Family History Reviewed: Yes Children Family History Reviewed: Yes Sibling(s) Family History Reviewed.: Yes Medication/Allergy Allergies/Adverse Reactions: No Known Allergies Allergy (Verified 05/22/17 03:25) Review of Systems Constitutional: PRESENT: anorexia, fatigue, weight loss Gastrointestinal: PRESENT: abdominal pain Musculoskeletal: PRESENT: back pain, muscle weakness Neurological: PRESENT: weakness Endocrine: PRESENT: cold intolerance Physical Exam Vital Signs: Temp Pulse Resp BP Pulse Ox 98.7 F 112 H 17 133/75 H 94 05/22/17 09:17 05/22/17 09:17 05/22/17 09:17 09:17 05/22/17 09:17 Intake & Output 05/21/17 05/22/17 05/23/17 06:59 06:59 06:59 Weight 105 kg General appearance: PRESENT: mild distress, thin, other - Patient loos cachectic, chronically ill looking Respiratory exam: PRESENT: decreased breath sounds Cardiovascular exam: PRESENT: +S1, +S2 GI/Abdominal exam: PRESENT: distended, tenderness Rectal exam: PRESENT: deferred Neurological exam: PRESENT: alert, CN II-XII grossly intact Results Impressions: Chest X-Ray 05/22/17 03:49 IMPRESSION: Small bilateral pleural effusions. Multiple bilateral pulmonary nodules, consistent with metastatic disease. Abdomen/Pelvis CT 05/22/17 04:17 IMPRESSION: Progression of disease with interval increase in size and number of the hepatic metastases. Interval increase in ascites. Omental carcinomatosis. Interval development of retroperitoneal adenopathy, probably metastatic. Mildly dilated small bowel loops with air-fluid levels in the left upper quadrant, may represent ileus versus developing obstruction. Diffuse subcutaneous edema. No significant interval change in the calcified lesion in the right lower quadrant abdominal wall. Interval increase in the bilateral pleural effusions with bibasilar atelectasis. Multiple bilateral pulmonary nodules, consistent with metastatic disease. Small pericardial effusion. Assessment & Plan - Diagnosis (1) Malignant ascites Is this a current diagnosis for this admission?: YesPlan: Patient is scheduled for abdominal paracentesis (2) Malignant neoplasm of endometrium Is this a current diagnosis for this admission?: YesPlan: oncology consultation. Overall prognosis is poor in this patient she was diagnosed 2 years ago with endometrial cancer, she has received treatment previously in [facility] CAT scan suggest progressive disease with interval increase in all pathologic indexes, hospice may be appropriate at this point. (3) Small bowel obstruction Is this a current diagnosis for this admission?: YesPlan: The CT scan suggest small bowel obstruction, the question is does she need nasogastric tube or will abdominal paracentesis help the small bowel obstruction. (4) Malignant pleural effusion Is this a current diagnosis for this admission?: Yes
[2017-05-22 11:20] LABS: PROTHROMBIN TIME 14.1 SEC (11.4-15.4)
[2017-05-22 11:21] LABS: PARTIAL THROMBOPLASTIN TIME 39.2 SEC (23.5-35.8)
[2017-05-22] MEDS ORDERED: HYDROMORPHONE HCL INJ/PF 2 MG/ML AMPULE IV PRN (12:55)
[2017-05-22] MEDS: FENTANYL CITRATE INJ/PF 100 MCG/2 ML AMPUL IV PRN ×2 (13:17→21:31)
--- NOTE | 2017-05-22 14:21 | RADIOLOGY REPORT (SQ) ---
EXAM DESCRIPTION: U/S ABD PARACENTESIS COMPLETED DATE/TIME: 05/22/2017 2:09 pm REASON FOR STUDY: malignant ascites COMPARISON: None. LIMITATIONS: None. PROCEDURE: Procedure, risks, benefit, and alternative explained to patient who then gave written con sent. The right lower quadrant abdominal wall marked using ultrasound guidance. A time-out was call ed for correct marking verification. Abdomen prepped and draped using sterile technique. Local anest hesia achieved using 4 ml of 1% lidocaine injection. A 6fr [id number]-Y-[id number] set was introduced into t he peritoneal cavity. Fluid was drained. The catheter was removed and entry site was covered with s terile bandage. No immediate complications noted. Images acquired during the procedure were stored on PACS. FINDINGS: ENTRY SITE: Right lower quadrant FLUID VOLUME: 2276 mL FLUID ANALYSIS: None OTHER: Cloudy yellow fluid color IMPRESSION: SUCCESSFUL ULTRASOUND GUIDED PARACENTESIS. COMMENT: Patient medication list reviewed:Yes- Quality ID# [id number]:Eligible professional attests to docu menting in the medical record they obtained, updated, or reviewed the patient's current medications. TECHNICAL DOCUMENTATION: JOB ID: [id number] [employer]- All Rights Reserved
[2017-05-22] MEDS: DOCUSATE SODIUM 100 MG CAPSULE PO SCH (17:19)
[2017-05-22] MEDS: TRAMADOL HCL 50 MG TABLET PO PRN (17:20)
[2017-05-22] MEDS: ONDANSETRON 4 MG TAB.RAPDIS PO PRN (17:20)
[2017-05-22] MEDS: AMLODIPINE BESYLATE 5 MG TABLET PO SCH (21:27)
[2017-05-22] MEDS ORDERED: METOPROLOL TARTRATE 25 MG TABLET PO SCH (22:00)
--- NOTE | 2017-05-23 08:36 | PDOC CONSULTATION ---
Consultation Consult Date: 05/23/17 Attending physician:: JOANIE PRIETO Consult reason:: Increasing ascites, known history of stage IV endometrial carcinoma History of Present Illness Admission Date/PCP: 05/22/17 19:59 JOANIE PRIETO MD Patient complains of: Abdominal pain, back pain, bloating History of Present Illness: 57-year-old female with known history of stage IV endometrial carcinoma, we have been following her now for 2 years, she has had overt progression of disease recently. Please see my note from earlier this month for full details on her recent chemotherapy regimens. Recently she has been on Doxil. She has had increasing ascites and required paracentesis several weeks ago, we are going to get paracentesis done tomorrow as an outpatient but she came in because of increasing abdominal pain and discomfort. She had been increased on Lasix but that had not really helped this issue. She has been more cachectic. She had CT of the abdomen pelvis indicating progression from the last CT. Past Medical History Cardiac Medical History: Reports: Hypertension - medication d/t chemo Denies: Coronary Artery Disease, Myocardial Infarction Pulmonary Medical History: Reports: Asthma - flovent Denies: Bronchitis, Chronic Obstructive Pulmonary Disease (COPD), Pneumonia Neurological Medical History: Denies: Seizures Malignancy Medical History: Reports: Other - endometrial cancer with mets GI Medical History: Reports: Gastroesophageal Reflux Disease Denies: Hepatitis, Hiatal Hernia Musculoskeltal Medical History: Denies: Arthritis Psychiatric Medical History: Reports: Depression Hematology: Reports: Anemia Denies: Sickle Cell Disease Past Surgical History Past Surgical History: Reports: Section, Hysterectomy, Other - Axillary biopsy Denies: Amputation, Mastectomy, Pacemaker Social History Lives with: Family Smoking Status: Unknown if Ever Smoked Frequency of Alcohol Use: None Hx Recreational Drug Use: No Drugs: None Hx Prescription Drug Abuse: No Family History Family History: Reviewed & Not Pertinent Parental Family History Reviewed: Yes Children Family History Reviewed: Yes Sibling(s) Family History Reviewed.: Yes Medication/Allergy Home Medications: Amlodipine Besylate [Norvasc 5 mg Tablet] 5 mg PO Q12 05/22/17 Biotin [Biotin 1 mg Tablet] 1 mg PO DAILY 05/22/17 Docusate Sodium [Colace 100 mg Capsule] 100 mg PO BID 05/22/17 Fluticasone Propionate [Flovent Diskus 100 mcg] 1 puff IH BID 05/22/17 Metoprolol Tartrate [Lopressor 25 mg Tablet] 12.5 mg PO Q12 05/22/17 Multivitamin [Tab-A-Sylvia (Multiple Vitamin) Tablet] 1 tab PO DAILY 05/22/17 Ondansetron [Zofran Odt] 8 mg PO Q8HP PRN 05/22/17 Polyethylene Glycol 3350 [Miralax Powder 17 gm/Packet] 17 gm PO DAILY 05/22/17 Tramadol HCl [Ultram 50 mg Tablet] 50 mg PO BIDP PRN 05/22/17 Allergies/Adverse Reactions: No Known Allergies Allergy (Verified 05/22/17 03:25) Review of Systems Constitutional: ABSENT: chills, fever(s), headache(s), weight gain, weight loss Eyes: ABSENT: visual disturbances Ears: ABSENT: hearing changes Cardiovascular: ABSENT: chest pain, dyspnea on exertion, edema, orthropnea, palpitations Respiratory: ABSENT: cough, hemoptysis Gastrointestinal: ABSENT: abdominal pain, constipation, diarrhea, hematemesis, hematochezia, nausea, vomiting Genitourinary: ABSENT: dysuria, hematuria Musculoskeletal: ABSENT: joint swelling Integumentary: ABSENT: rash, wounds Neurological: ABSENT: abnormal gait, abnormal speech, confusion, dizziness, focal weakness, syncope Psychiatric: ABSENT: anxiety, depression, homidical ideation, suicidal ideation Endocrine: ABSENT: cold intolerance, heat intolerance, polydipsia, polyuria Hematologic/Lymphatic: ABSENT: easy bleeding, easy bruising Physical Exam Vital Signs: Temp Pulse Resp BP Pulse Ox 98.6 F 104 H 18 132/73 H 96 05/23/17 03:35 05/23/17 03:35 05/22/17 23:29 05/23/17 03:35 05/23/17 03:35 Intake & Output 05/22/17 05/23/17 05/24/17 06:59 06:59 06:59 Intake Total 111 Output Total 500 Balance -389 Weight 48.1 kg General appearance: PRESENT: no acute distress, well-developed, well-nourished Head exam: PRESENT: atraumatic, normocephalic Eye exam: PRESENT: conjunctiva pink, EOMI, PERRLA. ABSENT: scleral icterus Ear exam: PRESENT: normal external ear exam Mouth exam: PRESENT: moist, tongue midline Neck exam: ABSENT: carotid bruit, JVD, lymphadenopathy, thyromegaly Respiratory exam: PRESENT: clear to auscultation clyde. ABSENT: rales, rhonchi, wheezes Cardiovascular exam: PRESENT: RRR. ABSENT: diastolic murmur, rubs, systolic murmur Pulses: PRESENT: normal dorsalis pedis pul Vascular exam: PRESENT: normal capillary refill GI/Abdominal exam: PRESENT: normal bowel sounds, soft. ABSENT: distended, guarding, mass, organolmegaly, rebound, tenderness Rectal exam: PRESENT: deferred Extremities exam: PRESENT: full ROM. ABSENT: calf tenderness, clubbing, pedal edema Neurological exam: PRESENT: alert, awake, oriented to person, oriented to place , oriented to time, oriented to situation, CN II-XII grossly intact. ABSENT: motor sensory deficit Psychiatric exam: PRESENT: appropriate affect, normal mood. ABSENT: homicidal ideation, suicidal ideation Skin exam: PRESENT: dry, intact, warm. ABSENT: cyanosis, rash Results Impressions: Chest X-Ray 05/22/17 03:49 IMPRESSION: Small bilateral pleural effusions. Multiple bilateral pulmonary nodules, consistent with metastatic disease. Abdomen/Pelvis CT 05/22/17 04:17 IMPRESSION: Progression of disease with interval increase in size and number of the hepatic metastases. Interval increase in ascites. Omental carcinomatosis. Interval development of retroperitoneal adenopathy, probably metastatic. Mildly dilated small bowel loops with air-fluid levels in the left upper quadrant, may represent ileus versus developing obstruction. Diffuse subcutaneous edema. No significant interval change in the calcified lesion in the right lower quadrant abdominal wall. Interval increase in the bilateral pleural effusions with bibasilar atelectasis. Multiple bilateral pulmonary nodules, consistent with metastatic disease. Small pericardial effusion. Paracentesis Ultrasound 05/22/17 10:19 IMPRESSION: SUCCESSFUL ULTRASOUND GUIDED PARACENTESIS. Assessment & Plan - Diagnosis (1) Malignant ascites Is this a current diagnosis for this admission?: YesPlan: Patient had paracentesis, she is having a lot of pain, I will DC the fentanyl as needed and start morphine 2 mg every 6 as as needed for pain. We will also find out her home pain medications, I believe I started her on long-acting pain medication, we will need to follow that up. (2) Malignant neoplasm of endometrium Is this a current diagnosis for this admission?: YesPlan: Stage IV endometrial cancer, I believe she is progressing rapidly, I am going to have a family discussion tomorrow and possibly discuss transition to comfort care and hospice in the future. - Time Time Spent: Greater than 70 Minutes Critical Time spent with patient: 35 or more minutes
[2017-05-23] MEDS: AMLODIPINE BESYLATE 5 MG TABLET PO SCH ×2 (09:43→21:43)
[2017-05-23] MEDS: MULTIVITAMIN TABLET PO SCH (09:44)
[2017-05-23] MEDS: DOCUSATE SODIUM 100 MG CAPSULE PO SCH (09:44)
[2017-05-23] MEDS: LORAZEPAM INJ 2 MG/1 ML VIAL IV PRN ×2 (09:44→20:18)
[2017-05-23] MEDS: METOPROLOL TARTRATE 25 MG TABLET PO SCH ×2 (09:44→21:42)
[2017-05-23] MEDS: POLYETHYLENE GLYCOL 3350 POWDER 17 GM/1 PACKET PO SCH (09:45)
[2017-05-23] MEDS ORDERED: (PENDING PHARMACY ID) (Biotin [Biotin 1 Mg Tablet] 1 MG) PO SCH (10:00)
--- NOTE | 2017-05-23 10:16 | RADIOLOGY REPORT (SQ) ---
EXAM DESCRIPTION: CTA CHEST COMPLETED DATE/TIME: 05/23/2017 9:32 am REASON FOR STUDY: sob COMPARISON: CT angio chest 05/04/2017 CT chest 03/10/2017 CT chest 12/21/2016 TECHNIQUE: CT scan of the chest performed using helical scanning technique with dynamic intravenous contrast injection. Images reviewed with lung, soft tissue and bone windows. Reconstructed coronal and sagittal MPR images reviewed. Additional 3 dimensional post-processing performed to develop Maximal Intensity Projection images (SD P). All images stored on PACS. All CT scanners at this facility use dose modulation, iterative reconstruction, and/or weight based d osing when appropriate to reduce radiation dose to as low as reasonably achievable (ALARA). [facility]: Dose Right [facility]: CareDose [facility]: Dose Right [facility]: Teradose 4D [facility]: [employer] CONTRAST TYPE AND DOSE: contrast/concentration: Isovue 370.00 mg/ml; Total Contrast Delivered: 56.0 ml; Total Saline Delivered: 101.1 ml RENAL FUNCTION: Creatinine 0.87 RADIATION DOSE: Up-to-date CT equipment and radiation dose reduction techniques were employed. CTDIv ol: 5.7 - 7.5 mGy. DLP: 190 mGy-cm. . LIMITATIONS: None. FINDINGS: LUNGS AND PLEURA: Slight increase in bilateral pleural effusion since compared to 05/03/2017 , small to moderate in size. Multiple lung parenchymal metastatic nodules are present slightly larger than on prior exams, largest in the right lung is on image 22, 1.1 x 0.9 cm in size. Largest in the left lung is at the left zayda g base axial image 34, 1.1 x 1 cm in size. AORTA AND GREAT VESSELS: No aneurysm or dissection. HEART: No pericardial effusion. PULMONARY ARTERIES: No emboli visualized in the main pulmonary arteries or the segmental branches. HILAR AND MEDIASTINAL STRUCTURES: No identified masses or abnormal nodes. HARDWARE: Right-sided permanent central line tip in the right atrium UPPER ABDOMEN: Small amount of ascites in the upper abdomen. Multiple peritoneal implants along the liver surface are similar compared to 05/04/2017 CT chest THYROID AND OTHER SOFT TISSUES: There is a stable 2.2 x 1.6 cm right axillary lymph node. Stable 2.2 x 2.2 cm previously biopsied left axillary lymph node axial image 31. Diffuse lymphedema throughout the left breast is stable. BONES: T5 minimal upper endplate compression deformity with bony sclerosis, new compared to 12/21/2016 , similar compared to previous more recent chest CT exams 3D MIPS: Confirm above findings. OTHER: No other significant finding. IMPRESSION: No CT angio evidence of acute pulmonary emboli. Slight increase in bilateral pleural effusions, now small to moderate in size Slight increase in size of multiple pulmonary nodules Stable ascites and metastatic lesions over the diaphragmatic surface of the liver TECHNICAL DOCUMENTATION: JOB ID: [id number] Quality ID # [id number]: Final reports with documentation of one or more dose reduction techniques (e.g., Au tomated exposure control, adjustment of the mA and/or kV according to patient size, use of iterative reconstruction technique) 2010 [employer]- All Rights Reserved
[2017-05-23] MEDS: MORPHINE SULFATE 10 MG/ML INJ IV PRN ×3 (10:57→22:24)
--- NOTE | 2017-05-23 11:19 | PDOC PROGRESS REPORT ---
Subjective Progress Note for:: 05/23/17 Subjective:: Patient was admitted for the shortness of the breath and the patient's underwent for the paracentesis and removed a more than 2.5 L of fluid. Patient is still feeling same still very weak and the patient still complains of shortness of the breath. Patients denied any chest pain No fever Physical Exam Vital Signs: Temp Pulse Resp BP Pulse Ox 98.2 F 107 H 20 114/64 92 05/23/17 08:00 05/23/17 08:00 05/23/17 08:00 05/23/17 08:00 05/23/17 08:00 Intake & Output 05/22/17 05/23/17 05/24/17 06:59 06:59 06:59 Intake Total 111 Output Total 500 Balance -389 Weight 48.1 kg General appearance: PRESENT: no acute distress, thin Eye exam: PRESENT: PERRLA Mouth exam: PRESENT: neck supple Respiratory exam: PRESENT: decreased breath sounds Cardiovascular exam: PRESENT: +S1, +S2, tachycardia GI/Abdominal exam: PRESENT: ascites, normal bowel sounds, soft Extremities exam: ABSENT: pedal edema Musculoskeletal exam: PRESENT: ambulatory Neurological exam: PRESENT: alert, awake, oriented to person, oriented to place Psychiatric exam: PRESENT: depressed Results Impressions: Chest X-Ray 05/22/17 03:49 IMPRESSION: Small bilateral pleural effusions. Multiple bilateral pulmonary nodules, consistent with metastatic disease. Abdomen/Pelvis CT 05/22/17 04:17 IMPRESSION: Progression of disease with interval increase in size and number of the hepatic metastases. Interval increase in ascites. Omental carcinomatosis. Interval development of retroperitoneal adenopathy, probably metastatic. Mildly dilated small bowel loops with air-fluid levels in the left upper quadrant, may represent ileus versus developing obstruction. Diffuse subcutaneous edema. No significant interval change in the calcified lesion in the right lower quadrant abdominal wall. Interval increase in the bilateral pleural effusions with bibasilar atelectasis. Multiple bilateral pulmonary nodules, consistent with metastatic disease. Small pericardial effusion. Paracentesis Ultrasound 05/22/17 10:19 IMPRESSION: SUCCESSFUL ULTRASOUND GUIDED PARACENTESIS. Chest/Abdomen CTA 05/23/17 00:00 IMPRESSION: No CT angio evidence of acute pulmonary emboli. Slight increase in bilateral pleural effusions, now small to moderate in size Slight increase in size of multiple pulmonary nodules Stable ascites and metastatic lesions over the diaphragmatic surface of the liver Assessment & Plan - Diagnosis (1) Malignant ascites Is this a current diagnosis for this admission?: YesPlan: Status post paracentesis (2) Malignant neoplasm of endometrium Is this a current diagnosis for this admission?: YesPlan: Discussed with the oncology and will discuss with the family about more palliative care (3) Malignant pleural effusion Is this a current diagnosis for this admission?: YesPlan: CT angiograms consistent most likely malignant pleural effusions (4) Anemia Qualifiers: Anemia type: unspecified type Qualified Code(s): D64.9 - Anemia, unspecified Is this a current diagnosis for this admission?: YesPlan: Currently stable (5) Hypertension Qualifiers: Hypertension type: essential hypertension Qualified Code(s): I10 - Essential (primary) hypertension Is this a current diagnosis for this admission?: YesPlan: Continues to current medications adjust the Lopressor 25 mg p.o. 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
[2017-05-23] MEDS: TRAMADOL HCL 50 MG TABLET PO PRN (20:17)
[2017-05-24] MEDS: MORPHINE SULFATE 10 MG/ML INJ IV PRN ×4 (03:10→20:12)
[2017-05-24] MEDS: ONDANSETRON 4 MG TAB.RAPDIS PO PRN (06:55)
--- NOTE | 2017-05-24 08:31 | PDOC PROGRESS REPORT ---
Subjective Progress Note for:: 05/24/17 Subjective:: Patient a little bit better this morning Physical Exam Vital Signs: Temp Pulse Resp BP Pulse Ox 97.9 F 104 H 20 128/71 H 97 05/24/17 08:25 05/24/17 08:25 05/24/17 08:25 05/24/17 08:25 05/24/17 08:25 Intake & Output 05/23/17 05/24/17 05/25/17 06:59 06:59 06:59 Intake Total 111 423 Output Total 500 400 125 Balance -389 23 -125 Weight 48.1 kg 46.1 kg General appearance: PRESENT: no acute distress, well-developed, well-nourished Head exam: PRESENT: atraumatic, normocephalic Eye exam: PRESENT: conjunctiva pink, EOMI, PERRLA. ABSENT: scleral icterus Ear exam: PRESENT: normal external ear exam Mouth exam: PRESENT: moist, tongue midline Neck exam: ABSENT: carotid bruit, JVD, lymphadenopathy, thyromegaly Respiratory exam: PRESENT: clear to auscultation clyde. ABSENT: rales, rhonchi, wheezes Cardiovascular exam: PRESENT: RRR. ABSENT: diastolic murmur, rubs, systolic murmur Pulses: PRESENT: normal dorsalis pedis pul Vascular exam: PRESENT: normal capillary refill GI/Abdominal exam: PRESENT: normal bowel sounds, soft. ABSENT: distended, guarding, mass, organolmegaly, rebound, tenderness Rectal exam: PRESENT: deferred Extremities exam: PRESENT: full ROM. ABSENT: calf tenderness, clubbing, pedal edema Neurological exam: PRESENT: alert, awake, oriented to person, oriented to place , oriented to time, oriented to situation, CN II-XII grossly intact. ABSENT: motor sensory deficit Psychiatric exam: PRESENT: appropriate affect, normal mood. ABSENT: homicidal ideation, suicidal ideation Skin exam: PRESENT: dry, intact, warm. ABSENT: cyanosis, rash Results Impressions: Chest X-Ray 05/22/17 03:49 IMPRESSION: Small bilateral pleural effusions. Multiple bilateral pulmonary nodules, consistent with metastatic disease. Abdomen/Pelvis CT 05/22/17 04:17 IMPRESSION: Progression of disease with interval increase in size and number of the hepatic metastases. Interval increase in ascites. Omental carcinomatosis. Interval development of retroperitoneal adenopathy, probably metastatic. Mildly dilated small bowel loops with air-fluid levels in the left upper quadrant, may represent ileus versus developing obstruction. Diffuse subcutaneous edema. No significant interval change in the calcified lesion in the right lower quadrant abdominal wall. Interval increase in the bilateral pleural effusions with bibasilar atelectasis. Multiple bilateral pulmonary nodules, consistent with metastatic disease. Small pericardial effusion. Paracentesis Ultrasound 05/22/17 10:19 IMPRESSION: SUCCESSFUL ULTRASOUND GUIDED PARACENTESIS. Chest/Abdomen CTA 05/23/17 00:00 IMPRESSION: No CT angio evidence of acute pulmonary emboli. Slight increase in bilateral pleural effusions, now small to moderate in size Slight increase in size of multiple pulmonary nodules Stable ascites and metastatic lesions over the diaphragmatic surface of the liver Assessment & Plan - Diagnosis (1) Malignant ascites Is this a current diagnosis for this admission?: YesPlan: Status post paracentesis, hold on further intervention for now (2) Malignant neoplasm of endometrium Is this a current diagnosis for this admission?: YesPlan: Today I had a long discussion with patient as well as daughter, spent greater than 45 minutes in discussion, recommended hospice. We will have community hospice come see her and probable discharge either later today or tomorrow on hospice. - Time Time Spent with patient: 35 or more minutes Critical Time spent with patient: 35 or more minutes
[2017-05-24] MEDS: DOCUSATE SODIUM 100 MG CAPSULE PO SCH ×3 (08:39→17:42)
--- NOTE | 2017-05-24 10:00 | PDOC PROGRESS REPORT ---
Subjective Progress Note for:: 05/24/17 Subjective:: Patient's remained same denied any chest pain still on and off short of breath. Patient's CT angiogram is negative for any PE. Physical Exam Vital Signs: Temp Pulse Resp BP Pulse Ox 97.9 F 104 H 20 128/71 H 97 05/24/17 08:25 05/24/17 08:25 05/24/17 08:25 05/24/17 08:25 05/24/17 08:25 Intake & Output 05/23/17 05/24/17 05/25/17 06:59 06:59 06:59 Intake Total 111 423 Output Total 500 400 125 Balance -389 23 -125 Weight 48.1 kg 46.1 kg General appearance: PRESENT: no acute distress, thin Eye exam: PRESENT: PERRLA Mouth exam: PRESENT: neck supple Respiratory exam: PRESENT: decreased breath sounds Cardiovascular exam: PRESENT: +S1, +S2 GI/Abdominal exam: PRESENT: ascites, normal bowel sounds, soft Extremities exam: ABSENT: pedal edema Neurological exam: PRESENT: alert, awake, oriented to person Results Impressions: Chest X-Ray 05/22/17 03:49 IMPRESSION: Small bilateral pleural effusions. Multiple bilateral pulmonary nodules, consistent with metastatic disease. Abdomen/Pelvis CT 05/22/17 04:17 IMPRESSION: Progression of disease with interval increase in size and number of the hepatic metastases. Interval increase in ascites. Omental carcinomatosis. Interval development of retroperitoneal adenopathy, probably metastatic. Mildly dilated small bowel loops with air-fluid levels in the left upper quadrant, may represent ileus versus developing obstruction. Diffuse subcutaneous edema. No significant interval change in the calcified lesion in the right lower quadrant abdominal wall. Interval increase in the bilateral pleural effusions with bibasilar atelectasis. Multiple bilateral pulmonary nodules, consistent with metastatic disease. Small pericardial effusion. Paracentesis Ultrasound 05/22/17 10:19 IMPRESSION: SUCCESSFUL ULTRASOUND GUIDED PARACENTESIS. Chest/Abdomen CTA 05/23/17 00:00 IMPRESSION: No CT angio evidence of acute pulmonary emboli. Slight increase in bilateral pleural effusions, now small to moderate in size Slight increase in size of multiple pulmonary nodules Stable ascites and metastatic lesions over the diaphragmatic surface of the liver Assessment & Plan - Diagnosis (1) Malignant ascites Is this a current diagnosis for this admission?: YesPlan: Status post paracentesis (2) Malignant neoplasm of endometrium Is this a current diagnosis for this admission?: YesPlan: Discussed with the oncology and will discuss with the family about more palliative care (3) Malignant pleural effusion Is this a current diagnosis for this admission?: Yes (4) Anemia Qualifiers: Anemia type: unspecified type Qualified Code(s): D64.9 - Anemia, unspecified Is this a current diagnosis for this admission?: YesPlan: Currently stable (5) Hypertension Qualifiers: Hypertension type: essential hypertension Qualified Code(s): I10 - Essential (primary) hypertension Is this a current diagnosis for this admission?: YesPlan: Continues to current medications adjust the Lopressor 25 mg p.o. 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
[2017-05-24] MEDS: POLYETHYLENE GLYCOL 3350 POWDER 17 GM/1 PACKET PO SCH ×2 (11:15→11:23)
[2017-05-24] MEDS: AMLODIPINE BESYLATE 5 MG TABLET PO SCH ×2 (11:22→22:02)
[2017-05-24] MEDS: METOPROLOL TARTRATE 25 MG TABLET PO SCH ×2 (11:22→22:02)
[2017-05-24] MEDS: MULTIVITAMIN TABLET PO SCH (11:22)
[2017-05-25] MEDS: MORPHINE SULFATE 10 MG/ML INJ IV PRN ×5 (03:30→23:13)
--- NOTE | 2017-05-25 08:21 | PDOC PROGRESS REPORT ---
Subjective Progress Note for:: 05/25/17 Subjective:: Patient is more lethargic, requiring more pain medication but still alert and oriented. Physical Exam Vital Signs: Temp Pulse Resp BP Pulse Ox 97.3 F 96 16 111/61 99 05/25/17 03:53 05/25/17 07:00 05/25/17 03:53 05/25/17 03:53 05/25/17 03:53 Intake & Output 05/24/17 05/25/17 05/26/17 06:59 06:59 06:59 Intake Total 423 290 Output Total 400 125 Balance 23 165 Weight 46.1 kg 46.1 kg General appearance: PRESENT: no acute distress, well-developed, well-nourished Head exam: PRESENT: atraumatic, normocephalic Eye exam: PRESENT: conjunctiva pink, EOMI, PERRLA. ABSENT: scleral icterus Ear exam: PRESENT: normal external ear exam Mouth exam: PRESENT: moist, tongue midline Neck exam: ABSENT: carotid bruit, JVD, lymphadenopathy, thyromegaly Respiratory exam: PRESENT: clear to auscultation clyde. ABSENT: rales, rhonchi, wheezes Cardiovascular exam: PRESENT: RRR. ABSENT: diastolic murmur, rubs, systolic murmur Pulses: PRESENT: normal dorsalis pedis pul Vascular exam: PRESENT: normal capillary refill GI/Abdominal exam: PRESENT: normal bowel sounds, soft. ABSENT: distended, guarding, mass, organolmegaly, rebound, tenderness Rectal exam: PRESENT: deferred Extremities exam: PRESENT: full ROM. ABSENT: calf tenderness, clubbing, pedal edema Neurological exam: PRESENT: alert, awake, oriented to person, oriented to place , oriented to time, oriented to situation, CN II-XII grossly intact. ABSENT: motor sensory deficit Psychiatric exam: PRESENT: appropriate affect, normal mood. ABSENT: homicidal ideation, suicidal ideation Skin exam: PRESENT: dry, intact, warm. ABSENT: cyanosis, rash Results Impressions: Chest X-Ray 05/22/17 03:49 IMPRESSION: Small bilateral pleural effusions. Multiple bilateral pulmonary nodules, consistent with metastatic disease. Abdomen/Pelvis CT 05/22/17 04:17 IMPRESSION: Progression of disease with interval increase in size and number of the hepatic metastases. Interval increase in ascites. Omental carcinomatosis. Interval development of retroperitoneal adenopathy, probably metastatic. Mildly dilated small bowel loops with air-fluid levels in the left upper quadrant, may represent ileus versus developing obstruction. Diffuse subcutaneous edema. No significant interval change in the calcified lesion in the right lower quadrant abdominal wall. Interval increase in the bilateral pleural effusions with bibasilar atelectasis. Multiple bilateral pulmonary nodules, consistent with metastatic disease. Small pericardial effusion. Paracentesis Ultrasound 05/22/17 10:19 IMPRESSION: SUCCESSFUL ULTRASOUND GUIDED PARACENTESIS. Chest/Abdomen CTA 05/23/17 00:00 IMPRESSION: No CT angio evidence of acute pulmonary emboli. Slight increase in bilateral pleural effusions, now small to moderate in size Slight increase in size of multiple pulmonary nodules Stable ascites and metastatic lesions over the diaphragmatic surface of the liver Assessment & Plan - Diagnosis (1) Malignant ascites Is this a current diagnosis for this admission?: YesPlan: I had a long discussion with the daughter as well as patient, she is having increased distention, I believe now she would benefit from a Pleurx catheter in the abdomen for paracentesis to be done at home. I discussed this with hospice as well, and they would agree with this approach. I discussed this with general surgery who can place this tomorrow. Hopefully we can get that moved up. She will discharge with hospice thereafter. I believe this will be necessary for comfort. (2) Malignant neoplasm of endometrium Is this a current diagnosis for this admission?: YesPlan: No further treatment plan, she is no longer a candidate for therapy, she is hospice appropriate, however she still full code, I discussed DNR status with her, she wants to talk with her daughter. - Time Time Spent with patient: 35 or more minutes Critical Time spent with patient: 35 or more minutes
--- NOTE | 2017-05-25 10:20 | PDOC PROGRESS REPORT ---
Subjective Progress Note for:: 05/25/17 Subjective:: Patient is currently doing fair. Patient supposed to get the peritoneal catheter probably today or tomorrow. Patient still weak denied any chest pain denied any shortness of the breath Physical Exam Vital Signs: Temp Pulse Resp BP Pulse Ox 97.6 F 96 16 114/61 99 05/25/17 07:23 05/25/17 07:23 05/25/17 07:23 05/25/17 07:23 05/25/17 07:23 Intake & Output 05/24/17 05/25/17 05/26/17 06:59 06:59 06:59 Intake Total 423 290 Output Total 400 125 Balance 23 165 Weight 46.1 kg 46.1 kg General appearance: PRESENT: no acute distress Eye exam: PRESENT: PERRLA Respiratory exam: PRESENT: clear to auscultation clyde Cardiovascular exam: PRESENT: +S1, +S2 GI/Abdominal exam: PRESENT: ascites, normal bowel sounds, soft. ABSENT: tenderness Musculoskeletal exam: PRESENT: ambulatory Neurological exam: PRESENT: alert, awake, oriented to person, oriented to place , oriented to time, oriented to situation Skin exam: PRESENT: dry Results Impressions: Chest X-Ray 05/22/17 03:49 IMPRESSION: Small bilateral pleural effusions. Multiple bilateral pulmonary nodules, consistent with metastatic disease. Abdomen/Pelvis CT 05/22/17 04:17 IMPRESSION: Progression of disease with interval increase in size and number of the hepatic metastases. Interval increase in ascites. Omental carcinomatosis. Interval development of retroperitoneal adenopathy, probably metastatic. Mildly dilated small bowel loops with air-fluid levels in the left upper quadrant, may represent ileus versus developing obstruction. Diffuse subcutaneous edema. No significant interval change in the calcified lesion in the right lower quadrant abdominal wall. Interval increase in the bilateral pleural effusions with bibasilar atelectasis. Multiple bilateral pulmonary nodules, consistent with metastatic disease. Small pericardial effusion. Paracentesis Ultrasound 05/22/17 10:19 IMPRESSION: SUCCESSFUL ULTRASOUND GUIDED PARACENTESIS. Chest/Abdomen CTA 05/23/17 00:00 IMPRESSION: No CT angio evidence of acute pulmonary emboli. Slight increase in bilateral pleural effusions, now small to moderate in size Slight increase in size of multiple pulmonary nodules Stable ascites and metastatic lesions over the diaphragmatic surface of the liver Assessment & Plan - Diagnosis (1) Malignant ascites Is this a current diagnosis for this admission?: YesPlan: Scheduled for peritoneal catheter for palliative treatment (2) Malignant neoplasm of endometrium Is this a current diagnosis for this admission?: YesPlan: Discussed with the oncology and will discuss with the family about more palliative care (3) Malignant pleural effusion Is this a current diagnosis for this admission?: YesPlan: CT angiograms consistent most likely malignant pleural effusions (4) Anemia Qualifiers: Anemia type: unspecified type Qualified Code(s): D64.9 - Anemia, unspecified Is this a current diagnosis for this admission?: YesPlan: Currently stable (5) Hypertension Qualifiers: Hypertension type: essential hypertension Qualified Code(s): I10 - Essential (primary) hypertension Is this a current diagnosis for this admission?: YesPlan: Continues to current medications adjust the Lopressor 25 mg p.o. 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 Daughter was also discussed by the oncology about all the hospice care and the patient and the daughter understand very clearly about the hospice care and comfort care and proceed for that
[2017-05-25] MEDS: AMLODIPINE BESYLATE 5 MG TABLET PO SCH ×2 (10:37→21:18)
[2017-05-25] MEDS: METOPROLOL TARTRATE 25 MG TABLET PO SCH ×2 (10:38→21:19)
[2017-05-25] MEDS: DOCUSATE SODIUM 100 MG CAPSULE PO SCH ×2 (10:38→18:09)
[2017-05-25] MEDS: MULTIVITAMIN TABLET PO SCH (10:39)
[2017-05-25] MEDS: ONDANSETRON 4 MG TAB.RAPDIS PO PRN (15:27)
[2017-05-25] MEDS: TRAMADOL HCL 50 MG TABLET PO PRN (15:27)
[2017-05-26] MEDS: ONDANSETRON 4 MG TAB.RAPDIS PO PRN (02:19)
[2017-05-26] MEDS: MORPHINE SULFATE 10 MG/ML INJ IV PRN ×2 (07:42→14:22)
--- NOTE | 2017-05-26 08:15 | PDOC PROGRESS REPORT ---
Subjective Progress Note for:: 05/26/17 Subjective:: Patient nauseous this morning. Physical Exam Vital Signs: Temp Pulse Resp BP Pulse Ox 97.7 F 102 H 16 110/59 L 99 05/26/17 03:39 05/26/17 03:39 05/26/17 03:39 05/26/17 03:39 05/26/17 03:39 Intake & Output 05/25/17 05/26/17 05/27/17 06:59 06:59 06:59 Intake Total 290 1151 Output Total 125 0 Balance 165 1151 Weight 46.1 kg 49.3 kg General appearance: PRESENT: no acute distress, well-developed, well-nourished Head exam: PRESENT: atraumatic, normocephalic Eye exam: PRESENT: conjunctiva pink, EOMI, PERRLA. ABSENT: scleral icterus Ear exam: PRESENT: normal external ear exam Mouth exam: PRESENT: moist, tongue midline Neck exam: ABSENT: carotid bruit, JVD, lymphadenopathy, thyromegaly Respiratory exam: PRESENT: clear to auscultation clyde. ABSENT: rales, rhonchi, wheezes Cardiovascular exam: PRESENT: RRR. ABSENT: diastolic murmur, rubs, systolic murmur Pulses: PRESENT: normal dorsalis pedis pul Vascular exam: PRESENT: normal capillary refill GI/Abdominal exam: PRESENT: normal bowel sounds, soft. ABSENT: distended, guarding, mass, organolmegaly, rebound, tenderness Rectal exam: PRESENT: deferred Extremities exam: PRESENT: full ROM. ABSENT: calf tenderness, clubbing, pedal edema Neurological exam: PRESENT: alert, awake, oriented to person, oriented to place , oriented to time, oriented to situation, CN II-XII grossly intact. ABSENT: motor sensory deficit Psychiatric exam: PRESENT: appropriate affect, normal mood. ABSENT: homicidal ideation, suicidal ideation Skin exam: PRESENT: dry, intact, warm. ABSENT: cyanosis, rash Results Impressions: Chest X-Ray 05/22/17 03:49 IMPRESSION: Small bilateral pleural effusions. Multiple bilateral pulmonary nodules, consistent with metastatic disease. Abdomen/Pelvis CT 05/22/17 04:17 IMPRESSION: Progression of disease with interval increase in size and number of the hepatic metastases. Interval increase in ascites. Omental carcinomatosis. Interval development of retroperitoneal adenopathy, probably metastatic. Mildly dilated small bowel loops with air-fluid levels in the left upper quadrant, may represent ileus versus developing obstruction. Diffuse subcutaneous edema. No significant interval change in the calcified lesion in the right lower quadrant abdominal wall. Interval increase in the bilateral pleural effusions with bibasilar atelectasis. Multiple bilateral pulmonary nodules, consistent with metastatic disease. Small pericardial effusion. Paracentesis Ultrasound 05/22/17 10:19 IMPRESSION: SUCCESSFUL ULTRASOUND GUIDED PARACENTESIS. Chest/Abdomen CTA 05/23/17 00:00 IMPRESSION: No CT angio evidence of acute pulmonary emboli. Slight increase in bilateral pleural effusions, now small to moderate in size Slight increase in size of multiple pulmonary nodules Stable ascites and metastatic lesions over the diaphragmatic surface of the liver Assessment & Plan - Diagnosis (1) Malignant ascites Is this a current diagnosis for this admission?: YesPlan: Plan for paracentesis catheter placement, thereafter she may be able to discharge home. Nursing will contact hospice and see if everything is set up for her at home. If needed she may need to stay 1 more night and then discharge tomorrow on hospice. She has nausea related to the ascites, medications are on board she could get some Ativan after procedure is needed. (2) Malignant neoplasm of endometrium Is this a current diagnosis for this admission?: YesPlan: No further treatment planned, plan for hospice postdischarge. - Time Time Spent with patient: 25-34 minutes Critical Time spent with patient: 25-34 minutes
[2017-05-26] MEDS ORDERED: ONDANSETRON HCL INJ/PF 4 MG/2 ML SDV ONE (08:28)
[2017-05-26] MEDS ORDERED: ONDANSETRON HCL INJ/PF 4 MG/2 ML SDV IV ONE (09:00)
--- NOTE | 2017-05-26 09:14 | PDOC PROGRESS REPORT ---
Subjective Progress Note for:: 05/26/17 Subjective:: Patient is currently doing fair currently n.p.o. patient is complaining some nausea. Denied any chest pain denied any shortness of the breath.Patient scheduled for the peritoneal catheter placement Physical Exam Vital Signs: Temp Pulse Resp BP Pulse Ox 98.0 F 100 16 119/66 100 05/26/17 08:42 05/26/17 08:42 05/26/17 08:42 05/26/17 08:42 05/26/17 08:42 Intake & Output 05/25/17 05/26/17 05/27/17 06:59 06:59 06:59 Intake Total 290 1151 Output Total 125 0 Balance 165 1151 Weight 46.1 kg 49.3 kg General appearance: PRESENT: no acute distress Eye exam: PRESENT: PERRLA Mouth exam: PRESENT: neck supple Respiratory exam: PRESENT: decreased breath sounds Cardiovascular exam: PRESENT: +S1, +S2 GI/Abdominal exam: PRESENT: normal bowel sounds, soft Extremities exam: ABSENT: pedal edema Neurological exam: PRESENT: alert, awake, oriented to person, oriented to place Psychiatric exam: PRESENT: anxious Results Impressions: Chest X-Ray 05/22/17 03:49 IMPRESSION: Small bilateral pleural effusions. Multiple bilateral pulmonary nodules, consistent with metastatic disease. Abdomen/Pelvis CT 05/22/17 04:17 IMPRESSION: Progression of disease with interval increase in size and number of the hepatic metastases. Interval increase in ascites. Omental carcinomatosis. Interval development of retroperitoneal adenopathy, probably metastatic. Mildly dilated small bowel loops with air-fluid levels in the left upper quadrant, may represent ileus versus developing obstruction. Diffuse subcutaneous edema. No significant interval change in the calcified lesion in the right lower quadrant abdominal wall. Interval increase in the bilateral pleural effusions with bibasilar atelectasis. Multiple bilateral pulmonary nodules, consistent with metastatic disease. Small pericardial effusion. Paracentesis Ultrasound 05/22/17 10:19 IMPRESSION: SUCCESSFUL ULTRASOUND GUIDED PARACENTESIS. Chest/Abdomen CTA 05/23/17 00:00 IMPRESSION: No CT angio evidence of acute pulmonary emboli. Slight increase in bilateral pleural effusions, now small to moderate in size Slight increase in size of multiple pulmonary nodules Stable ascites and metastatic lesions over the diaphragmatic surface of the liver Assessment & Plan - Diagnosis (1) Malignant ascites Is this a current diagnosis for this admission?: YesPlan: Scheduled for peritoneal catheter for palliative treatment (2) Malignant neoplasm of endometrium Is this a current diagnosis for this admission?: YesPlan: Discussed with the oncology and will discuss with the family about more palliative care (3) Malignant pleural effusion Is this a current diagnosis for this admission?: YesPlan: CT angiograms consistent most likely malignant pleural effusions (4) Anemia Qualifiers: Anemia type: unspecified type Qualified Code(s): D64.9 - Anemia, unspecified Is this a current diagnosis for this admission?: YesPlan: Currently stable (5) Hypertension Qualifiers: Hypertension type: essential hypertension Qualified Code(s): I10 - Essential (primary) hypertension Is this a current diagnosis for this admission?: YesPlan: Continues to current medications adjust the Lopressor 25 mg p.o. 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
[2017-05-26] MEDS ORDERED: MORPHINE SULFATE 10 MG/ML INJ ONE (10:07)
[2017-05-26] MEDS: MULTIVITAMIN TABLET PO SCH (10:47)
[2017-05-26] MEDS: AMLODIPINE BESYLATE 5 MG TABLET PO SCH (10:47)
[2017-05-26] MEDS: DOCUSATE SODIUM 100 MG CAPSULE PO SCH (10:47)
[2017-05-26] MEDS: POLYETHYLENE GLYCOL 3350 POWDER 17 GM/1 PACKET PO SCH (10:47)
[2017-05-26] MEDS: METOPROLOL TARTRATE 25 MG TABLET PO SCH (10:47)
[2017-05-26 14:41] VITALS: BP 119/66
--- NOTE | 2017-05-26 15:11 | PDOC DISCHARGE SUMMARY ---
General - Admit/Disc Date/PCP Admission Date/Primary Care Provider: 05/22/17 19:59 JOANIE PRIETO MD Discharge Date: 05/26/17 - Discharge Diagnosis (1) Malignant ascites Is this a current diagnosis for this admission?: YesSummary: Status post peritoneal catheter for palliative care (2) Malignant neoplasm of endometrium Is this a current diagnosis for this admission?: YesSummary: For the hospice care (3) Malignant pleural effusion Is this a current diagnosis for this admission?: Yes (4) Anemia Is this a current diagnosis for this admission?: Yes (5) Hypertension Is this a current diagnosis for this admission?: Yes (6) Shortness of breath Is this a current diagnosis for this admission?: Yes - Additional Information Resuscitation Status: Full Code Discharge Diet: Regular Discharge Activity: Activity As Tolerated Home Medications: Amlodipine Besylate [Norvasc 5 mg Tablet] 5 mg PO Q12 05/22/17 Biotin [Biotin 1 mg Tablet] 1 mg PO DAILY 05/22/17 Docusate Sodium [Colace 100 mg Capsule] 100 mg PO BID 05/22/17 Fluticasone Propionate [Flovent Diskus 100 mcg] 1 puff IH BID 05/22/17 Metoprolol Tartrate [Lopressor 25 mg Tablet] 12.5 mg PO Q12 05/22/17 Multivitamin [Tab-A-Sylvia (Multiple Vitamin) Tablet] 1 tab PO DAILY 05/22/17 Ondansetron [Zofran Odt] 8 mg PO Q8HP PRN 05/22/17 Polyethylene Glycol 3350 [Miralax Powder 17 gm/Packet] 17 gm PO DAILY 05/22/17 Tramadol HCl [Ultram 50 mg Tablet] 50 mg PO BIDP PRN 05/22/17 History of Present Illness History of Present Illness: DENIS HAIR is a 57 year old female Is a 57-year-old female admitting in the hospital because of the shortness of the breath and underwent for the Paracentesis Hospital Course Hospital Course: This is a 57-year-old female with a stage IV endometrial cancers status post malignant ascites and malignant pleural effusion and. In patients unable to get any treatments and not candidate for any treatmentsWith the worsening the doses with a consult with the oncology and discussed with the patient and the daughter and patient's discharged with the hospice care and comfort care and patient was put on the peritoneal catheter for the palliative treatment for recurrent ascites Physical Exam Vital Signs: Temp Pulse Resp BP Pulse Ox 98.3 F 102 H 16 119/66 96 05/26/17 14:38 05/26/17 14:38 05/26/17 14:38 05/26/17 14:38 05/26/17 14:38 Intake & Output 05/25/17 05/26/17 05/27/17 06:59 06:59 06:59 Intake Total 290 1151 0 Output Total 125 0 0 Balance 165 1151 0 Weight 46.1 kg 49.3 kg General appearance: PRESENT: no acute distress Eye exam: PRESENT: PERRLA Respiratory exam: PRESENT: decreased breath sounds Cardiovascular exam: PRESENT: +S1, +S2 GI/Abdominal exam: PRESENT: ascites, normal bowel sounds, soft Extremities exam: ABSENT: pedal edema Neurological exam: PRESENT: alert, awake Psychiatric exam: PRESENT: anxious Results Impressions: Chest X-Ray 05/22/17 03:49 IMPRESSION: Small bilateral pleural effusions. Multiple bilateral pulmonary nodules, consistent with metastatic disease. Abdomen/Pelvis CT 05/22/17 04:17 IMPRESSION: Progression of disease with interval increase in size and number of the hepatic metastases. Interval increase in ascites. Omental carcinomatosis. Interval development of retroperitoneal adenopathy, probably metastatic. Mildly dilated small bowel loops with air-fluid levels in the left upper quadrant, may represent ileus versus developing obstruction. Diffuse subcutaneous edema. No significant interval change in the calcified lesion in the right lower quadrant abdominal wall. Interval increase in the bilateral pleural effusions with bibasilar atelectasis. Multiple bilateral pulmonary nodules, consistent with metastatic disease. Small pericardial effusion. Paracentesis Ultrasound 05/22/17 10:19 IMPRESSION: SUCCESSFUL ULTRASOUND GUIDED PARACENTESIS. Chest/Abdomen CTA 05/23/17 00:00 IMPRESSION: No CT angio evidence of acute pulmonary emboli. Slight increase in bilateral pleural effusions, now small to moderate in size Slight increase in size of multiple pulmonary nodules Stable ascites and metastatic lesions over the diaphragmatic surface of the liver Plan Time Spent: Greater than 30 Minutes - Very extensive discussions with the patient and the daughter about the hospice care and all other options and understand about the hospice and patients with stage IV cancer with malignant ascites and pleural effusions and patient slept expectancy is less than 6 month and appropriate for the hospice care discussed with the oncology and agree
[2017-05-26] MEDS ORDERED: FENTANYL 12 MCG/HR PATCH.TD72 TD ONE (15:30)
[2017-05-29] MEDS ORDERED: FENTANYL 12 MCG/HR PATCH.TD72 TD SCH (10:00)
== END 2017-05-26 16:25 | disposition hospice, home (50) | DRG 755 ==
LOC: ER 03:22 → EH 06:27 → UNDOADMIN 06:27 → 3S 08:37 → EH 08:37 → 3S 19:59 → EH 19:59
PROVIDERS: ADMIT Family Medicine; ATTEND Family Medicine
PROC: 0W9G3ZX Drainage of Peritoneal Cavity, Percutaneous Approach, Diagnostic (ICD-10-PCS; principal; 2017-05-22)
DX: C54.1 Malignant neoplasm of endometrium (principal); R18.0 Malignant ascites; J91.0 Malignant pleural effusion; I10 Essential (primary) hypertension; K21.9 Gastro-esophageal reflux disease without esophagitis; D64.9 Anemia, unspecified; Z79.899 Other long term (current) drug therapy; Z90.710 Acquired absence of both cervix and uterus
CPT/HCPCS: 36415; 36591; 49082; 49083; 71010; 71275; 74177; 80053; 81001; 83605; 85025; 85610; 85730; 93005; 93010; 96374; 96375; 99285; J2060; J2270; J2405; J3010; J3490; S0119